=== PATIENT | male | born 1975 | race African-American/Black ===

== ENCOUNTER 2018-10-24 17:21 | Inpatient (IN) | payer BC ==
[2018-10-24] MEDS ORDERED: NORMAL SALINE 1000 ML 1,000 ML IV ONE (18:16)
--- NOTE | 2018-10-24 18:20 | ER Document Report ---
ED Medical Screen (RME) - General Chief Complaint: Breathing Difficulty Stated Complaint: BREATHING PROBLEMS Time Seen by Provider: 10/24/18 18:08 Primary Care Provider: CATHY CORDON [Primary Care Provider] - Follow up as needed Mode of Arrival: Ambulatory Information source: Patient TRAVEL OUTSIDE OF THE [place] IN LAST 30 DAYS: No - HPI Patient complains to provider of: SOB Notes: 10/24/18 18:17 Patient here with complaints of shortness of breath. The patient states that he recently was diagnosed with pneumonia. When back to urgent care yesterday because he was feeling short of breath and was told that he had pneumonia again. He was started on antibiotics. He has an appoint with his primary care doctor tomorrow was feeling more shortness of breath so he came in for evaluation. He denies any chronic medical problems. He takes no daily medications. He denies any recent long trips or surgeries, leg pain or leg swelling, cancer, history of DVT or PE. He is a non-smoker. No chronic lung disease. 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 Exam Patient's mildly tachypneic, appears short of breath when talking. Diminished breath sounds throughout. Heart sounds normal aside from tachycardia. Plan Patient is tachycardic as well as tachypneic and has possible pneumonia. Due to having 2 SIRS criteria with possible infection, I have initiated the sepsis protocol on the patient. No history of renal disease or congestive heart failure, 1 L of normal saline is been ordered. An initial examination was made on the patient as part of the triage process, and it was determined a more comprehensive evaluation was necessary. Initial labs were ordered and patient was transferred to another provider in the ED who assumed care and finished evaluation and plan. - Related Data Allergies/Adverse Reactions: No Known Allergies Allergy (Unverified 10/24/18 18:02) Past Medical History - Social History Chew tobacco use (# tins/day): No Frequency of alcohol use: None Drug Abuse: None Renal/ Medical History: Denies: Hx Peritoneal Dialysis - Immunizations Hx Diphtheria, Pertussis, Tetanus Vaccination: Yes Physical Exam - Vital signs Vitals: Temp Pulse Resp BP Pulse Ox 98.3 F 121 H 22 H 146/88 H 89 L 10/24/18 18:00 10/24/18 18:00 10/24/18 18:00 10/24/18 18:00 10/24/18 18:00 Course - Vital Signs Vital signs: Temp Pulse Resp BP Pulse Ox 98.3 F 121 H 22 H 146/88 H 89 L 10/24/18 18:00 10/24/18 18:00 10/24/18 18:00 10/24/18 18:00 10/24/18 18:00 Doctor's Discharge - Discharge Referrals: LOCALMD,NO [Primary Care Provider] - Follow up as needed
--- NOTE | 2018-10-24 19:11 | RADIOLOGY REPORT (SQ) ---
EXAM DESCRIPTION: CHEST 2 VIEWS COMPLETED DATE/TIME: 10/24/2018 6:22 pm REASON FOR STUDY: SOB COMPARISON: None. EXAM PARAMETERS: NUMBER OF VIEWS: two views TECHNIQUE: Digital Frontal and Lateral radiographic views of the chest acquired. RADIATION DOSE: NA LIMITATIONS: none FINDINGS: LUNGS AND PLEURA: There appears to be mild pulmonary edema. No focal infiltrate. MEDIASTINUM AND HILAR STRUCTURES: No masses or contour abnormalities. HEART AND VASCULAR STRUCTURES: Heart normal size. No evidence for failure. BONES: No acute findings. HARDWARE: None in the chest. OTHER: No other significant finding. IMPRESSION: Mild pulmonary edema, possibly noncardiac pulmonary edema. TECHNICAL DOCUMENTATION: JOB ID: [id number] [employer]- All Rights Reserved Reading location - IP/workstation name: [email or web address]
[2018-10-24 19:14] LABS: VENOUS BLOOD BASE EXCESS 2.8 mmol/L; VENOUS BLOOD HCO3 28.1 mmol/L (20-32); VENOUS BLOOD PCO2 45.7 mmHg (35-63); VENOUS BLOOD PH 7.41 (7.30-7.42)
[2018-10-24 19:15] LABS: ABSOLUTE LYMPHOCYTES (AUTO) 1.8 10^3/uL (0.5-4.7); ABSOLUTE MONOCYTES (AUTO) 0.6 10^3/uL (0.1-1.4); ABSOLUTE NEUT (AUTO) 3.2 10^3/uL (1.7-8.2); BASOPHILS % (AUTO) 0.1 % (0-2); EOSINOPHILS % (AUTO) 0.7 % (0-6); HEMATOCRIT 40.9 % (37.9-51.0); HEMOGLOBIN 13.5 g/dL (13.5-17.0); LYMPHOCYTES % (AUTO) 32.1 % (13-45); MEAN CORPUSCULAR HEMOGLOBIN 27.5 pg (27.0-33.4); MEAN CORPUSCULAR HGB CONC 32.9 g/dL (32.0-36.0); MEAN CORPUSCULAR VOLUME 84 fl (80-97); MONOCYTES % (AUTO) 11.4 % (3-13); PLATELET COUNT 451 10^3/uL (150-450); RED CELL DISTRIBUTION WIDTH 14.4 % (11.5-14.0); SEGMENTED NEUTROPHILS % (AUTO) 55.7 % (42-78); TOTAL CELLS COUNTED % (AUTO) 100 %; WHITE BLOOD COUNT 5.7 10^3/uL (4.0-10.5)
[2018-10-24 19:17] LABS: APPEARANCE,URINE SLIGHTLY-CLOUDY; BILIRUBIN,URINE SMALL (NEGATIVE); CALCIUM OXALATE CRYSTALS,URINE FEW /HPF; COLOR,URINE AMBER; GLUCOSE, URINE NEGATIVE (NEGATIVE); KETONES,URINE NEGATIVE (NEGATIVE); LEUKOCYTE ESTERASE,URINE NEGATIVE (NEGATIVE); NITRITE,URINE NEGATIVE (NEGATIVE); PROTEIN,URINE 30 mg/dL (NEGATIVE)
[2018-10-24 19:21] LABS: INTERNATIONAL RATION (INR) 1.02; PROTHROMBIN TIME 13.9 SEC (11.4-15.4)
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
[2018-10-24 22:49] LABS: ALANINE AMINOTRANSFERASE 20 U/L (21-72); ALBUMIN 3.3 g/dL (3.5-5.0); ALKALINE PHOSPHATASE 92 U/L (38-126); ANION GAP 8 (5-19); ASPARTATE AMINO TRANSFERASE 21 U/L (17-59); BILIRUBIN,DIRECT 0.2 mg/dL (0.0-0.4); BILIRUBIN,TOTAL 0.4 mg/dL (0.2-1.3); BLOOD UREA NITROGEN 10 mg/dL (7-20); CALCIUM 9.1 mg/dL (8.4-10.2); CARBON DIOXIDE 29 mmol/L (22-30); CHLORIDE 101 mmol/L (98-107); GLUCOSE 130 mg/dL (75-110); POTASSIUM 4.3 mmol/L (3.6-5.0); SODIUM 138.2 mmol/L (137-145); TOTAL PROTEIN 6.7 g/dL (6.3-8.2)
[2018-10-24 22:55] LABS: NT PRO BNP 21 pg/mL (<125)
[2018-10-24 22:59] LABS: TROPONIN I < 0.012 ng/mL
--- NOTE | 2018-10-24 23:03 | RADIOLOGY REPORT (SQ) ---
CT CHEST ANGIOGRAPHY WITHOUT THEN WITH IV CONTRAST HISTORY: Shortness of breath. COMPARISON: None. TECHNIQUE: CT angiogram of the chest with IV contrast. 3-D MIP images were obtained in coronal and sagittal reconstructions. This exam was performed according to our departmental dose-optimization program, which includes automated exposure control, adjustment of the mA and/or kV according to patient size and/or use of iterative reconstruction technique. FINDINGS: No filling defects are identified in the pulmonary trunk, main left and right pulmonary arteries, or the segmental branches. The thyroid gland is normal. No gross mediastinal, hilar, or axillary adenopathy. There are diffuse bilateral groundglass opacities throughout all lobes with superimposed areas of centrilobular tree-in-bud nodules. No pneumothorax or pleural effusion. The visualized upper abdomen demonstrates a 3.2 cm hypodense lesion in the left hepatic lobe. The bony thorax is intact. IMPRESSION: 1. No acute pulmonary embolism. 2. Findings consistent with diffuse small airways disease in both lungs, which may be infectious or inflammatory in etiology.
[2018-10-24] MEDS ORDERED: METHYLPREDNISOLONE INJ 125 MG/2 ML SDV IV ONE (23:30)
[2018-10-24] MEDS ORDERED: DOXYCYCLINE HYCLATE 100 MG TABLET PO ONE (23:30)
[2018-10-25] MEDS ORDERED: ONDANSETRON HCL INJ/PF 4 MG/2 ML SDV IV PRN (01:59)
[2018-10-25] MEDS ORDERED: ZOLPIDEM TARTRATE 5 MG TABLET PO PRN (01:59)
[2018-10-25] MEDS ORDERED: MAG HYDROX/AL HYDROX/SIMETH SUSP 30 ML UDCUP PO PRN (01:59)
[2018-10-25] MEDS ORDERED: MAGNESIUM HYDROXIDE SUSP 30 ML UDCUP PO PRN (01:59)
[2018-10-25] MEDS ORDERED: ACETAMINOPHEN 325 MG TABLET PO PRN (02:16)
[2018-10-25 03:12] LABS: FREE T3 3.58 pg/mL (2.77-5.27); FREE T4 (FREE THYROXINE) 1.51 ng/dL (0.78-2.19)
[2018-10-25 03:25] LABS: THYROID STIMULATING HORMONE 1.92 uIU/mL (0.47-4.68)
[2018-10-25] MEDS: METHYLPREDNISOLONE INJ 40 MG/1 ML SDV IV SCH ×4 (06:05→23:36)
[2018-10-25] MEDS: HEPARIN SOD (PORCINE) 5,000 UNIT/ML 1 ML SYRINGE SUBCUT SCH ×3 (06:21→21:53)
[2018-10-25] MEDS: RINGERS SOLUTION,LACTATED 1,000 ML IV PRN ×2 (06:27→12:17)
--- NOTE | 2018-10-25 06:28 | PDOC H&P ---
History of Present Illness Admission Date/PCP: 10/25/18 00:40 No Local PCP Patient complains of: Dyspnea History of Present Illness: VERO RANGEL is a 43 year old male who presented to the emergency room with a 3-month history of dyspnea. Patient admits that he recovered from a pneumonia about 4 months ago and 2 or 3 weeks after his recovery he developed dyspnea. His dyspnea has gradually increased since that time being it first present just with exertion and over the last week the dyspnea has been present to some degree at rest and much worsened with any exertion or activity. On the day of admission his dyspnea became severe and he felt as though he could not breathe. He denies prior similar episodes and has not identified any additional aggravating or ameliorating factors for his dyspnea. In the emergency room he was found to be tachypneic, tachycardic and hypoxic with an O2 sat in the 88-89% range which did not respond rapidly to treatment. He was subsequently admitted to the hospital for further evaluation. He was also noted to have some abnormality on his chest x-ray and CT of the chest which will necessitate a pulmonology consultation. Past Medical History Cardiac Medical History: Denies: Coronary Artery Disease, Hypertension Pulmonary Medical History: Reports: Pneumonia Denies: Asthma, Chronic Obstructive Pulmonary Disease (COPD) EENT Medical History: Denies: Cataracts, Eyes - Prescription lenses, Ears - Hearing aids Neurological Medical History: Denies: Hemorrhagic CVA, Ischemic CVA, Seizures Endocrine Medical History: Denies: Diabetes Mellitus Type 1, Diabetes Mellitus Type 2, Hyperthyroidism, Hypothyroidism, Obesity Renal/ Medical History: Denies: Chronic Kidney Disease, Nephrolithiasis Malignancy Medical History: Reports: None GI Medical History: Denies: Cirrhosis, Crohn's Disease, Hepatitis, Ulcerative Colitis Musculoskeltal Medical History: Denies: Arthritis, Gout Skin Medical History: Denies: Eczema, Other Psychiatric Medical History: Denies: Alcohol Dependency, Substance Abuse, Tobacco Dependency Traumatic Medical History: Reports: None Hematology: Denies: Anemia, Bleeding Tendencies Infectious Medical History: Reports: None Past Surgical History Past Surgical History: Reports: None Social History Information Source: Patient Lives with: Parents Smoking Status: Never Smoker Frequency of Alcohol Use: Rare Hx Recreational Drug Use: No Drugs: None Hx Prescription Drug Abuse: No - Advance Directive Resuscitation Status: Full Code Surrogate healthcare decision maker:: Reba Walsh Family History Family History: Hypertension. denies: CAD, DM, Malignancy Parental Family History Reviewed: Yes Children Family History Reviewed: No Sibling(s) Family History Reviewed.: Yes Medication/Allergy Allergies/Adverse Reactions: No Known Allergies Allergy (Unverified 10/24/18 18:02) Review of Systems Constitutional: ABSENT: chills, fever(s) Eyes: ABSENT: visual disturbances, other - Ocular pain Ears: ABSENT: hearing changes, other - Ear pain Nose, Mouth, and Throat: ABSENT: mouth pain, sore throat Cardiovascular: PRESENT: dyspnea on exertion. ABSENT: chest pain, edema, orthropnea, palpitations Respiratory: PRESENT: dyspnea. ABSENT: cough Gastrointestinal: ABSENT: abdominal pain, constipation, diarrhea, hematochezia, nausea, vomiting Genitourinary: ABSENT: dysuria, hematuria Integumentary: ABSENT: pruritus, rash Neurological: ABSENT: confusion, convulsions, focal weakness, memory loss, syncope Psychiatric: ABSENT: anxiety, depression Endocrine: ABSENT: cold intolerance, heat intolerance Hematologic/Lymphatic: ABSENT: easy bleeding, easy bruising Physical Exam Vital Signs: Temp Pulse Resp BP Pulse Ox 98.4 F 121 H 23 H 130/73 H 98 10/24/18 20:47 10/24/18 18:00 10/24/18 21:00 10/24/18 22:42 10/24/18 22:42 Intake & Output 10/23/18 10/24/18 10/25/18 23:59 23:59 23:59 Intake Total 1000 Balance 1000 Weight 63.1 kg General appearance: PRESENT: no acute distress, cooperative, thin Head exam: PRESENT: atraumatic, normocephalic Eye exam: ABSENT: conjunctival injection, scleral icterus Ear exam: PRESENT: normal external ear exam. ABSENT: bleeding, drainage Mouth exam: PRESENT: dry mucosa, neck supple Neck exam: ABSENT: JVD, thyromegaly, tracheal deviation Respiratory exam: PRESENT: decreased breath sounds - Slightly decreased breath sounds throughout all areas of the chest, prolonged expiratory phas - Mildly prolonged expiratory phase in all mejia with moderately decreased air movement at the time of my evaluation, symmetrical, tachypnea. ABSENT: accessory muscle use, rales, retraction, rhonchi, wheezes Cardiovascular exam: PRESENT: RRR, tachycardia. ABSENT: clicks, gallop, rubs Pulses: PRESENT: normal radial pulses, normal dorsalis pedis pul Vascular exam: PRESENT: normal capillary refill. ABSENT: pallor GI/Abdominal exam: PRESENT: normal bowel sounds, soft Rectal exam: PRESENT: deferred Extremities exam: ABSENT: joint swelling, pedal edema Musculoskeletal exam: PRESENT: full ROM, normal inspection Neurological exam: PRESENT: alert, oriented to person, oriented to place, oriented to time, oriented to situation, CN II-XII grossly intact. ABSENT: motor sensory deficit Psychiatric exam: PRESENT: appropriate affect, normal mood Skin exam: PRESENT: dry, intact, warm. ABSENT: jaundice, rash, urticaria Results Laboratory Results: 10/24/18 18:46 10/24/18 22:17 10/24/18 10/24/18 10/24/18 17:46 17:46 18:46 WBC 5.7 RBC 4.90 Hgb 13.5 Hct 40.9 MCV 84 MCH 27.5 MCHC 32.9 RDW 14.4 H Plt Count 451 H Seg Neutrophils % 55.7 Lymphocytes % 32.1 Monocytes % 11.4 Eosinophils % 0.7 Basophils % 0.1 Absolute Neutrophils 3.2 Absolute Lymphocytes 1.8 Absolute Monocytes 0.6 Absolute Eosinophils 0.0 Absolute Basophils 0.0 VBG pH 7.41 VBG pCO2 45.7 VBG HCO3 28.1 VBG Base Excess 2.8 Sodium Potassium Chloride Carbon Dioxide Anion Gap BUN Creatinine Est GFR ( Amer) Est GFR (Non-Af Amer) Glucose Lactic Acid 1.0 Calcium Total Bilirubin AST ALT Alkaline Phosphatase Total Protein Albumin Urine Color Urine Appearance Urine pH Ur Specific [place] Urine Protein Urine Glucose (UA) Urine Ketones Urine Blood Urine Nitrite Ur Leukocyte Esterase Urine RBC (Auto) 10/24/18 10/24/18 10/24/18 18:46 18:53 22:17 WBC RBC Hgb Hct MCV MCH MCHC RDW Plt Count Seg Neutrophils % Lymphocytes % Monocytes % Eosinophils % Basophils % Absolute Neutrophils Absolute Lymphocytes Absolute Monocytes Absolute Eosinophils Absolute Basophils VBG pH VBG pCO2 VBG HCO3 VBG Base Excess Sodium Cancelled 138.2 Potassium Cancelled 4.3 Chloride Cancelled 101 Carbon Dioxide Cancelled 29 Anion Gap Cancelled 8 BUN Cancelled 10 Creatinine Cancelled 0.66 Est GFR ( Amer) Cancelled > 60 Est GFR (Non-Af Amer) Cancelled > 60 Glucose Cancelled 130 H Lactic Acid Calcium Cancelled 9.1 Total Bilirubin Cancelled 0.4 AST Cancelled 21 ALT Cancelled 20 L Alkaline Phosphatase Cancelled 92 Total Protein Cancelled 6.7 Albumin Cancelled 3.3 L Urine Color CHARLENE Urine Appearance SLIGHTLY-CLOUDY Urine pH 5.0 Ur Specific [place] 1.030 Urine Protein 30 H Urine Glucose (UA) NEGATIVE Urine Ketones NEGATIVE Urine Blood SMALL H Urine Nitrite NEGATIVE Ur Leukocyte Esterase NEGATIVE Urine RBC (Auto) 13 10/24/18 22:17 Troponin I < 0.012 NT-Pro-B Natriuret Pep 21 Impressions: Chest X-Ray 10/24/18 00:00 IMPRESSION: Mild pulmonary edema, possibly noncardiac pulmonary edema. Chest/Abdomen CTA 10/24/18 21:01 IMPRESSION: 1. No acute pulmonary embolism. 2. Findings consistent with diffuse small airways disease in both lungs, which may be infectious or inflammatory in etiology. Assessment and Plan - Diagnosis (1) Acute respiratory failure with hypoxia Is this a current diagnosis for this admission?: Yes Plan: Patient be treated with supplemental oxygen to maintain an O2 sat greater than 93%. His O2 sat will be monitored on a regular basis. A consultation will be obtained with pulmonology. (2) Abnormality of lung on chest x-ray Is this a current diagnosis for this admission?: Yes Plan: Patient was given empiric dose of doxycycline in the emergency room. A pulm onology consultation will be obtained to guide further therapy. Antibiotics will be held until after the patient is seen today in order to not interfere with possible diagnostic studies that may need to be needed on an urgent basis. Empiric therapy will be started by the daytime hospitalist or the validation manager seeing the patient in consultation if they are deemed appropriate. (3) Dyspnea Qualifiers: Dyspnea type: shortness of breath Qualified Code(s): R06.02 - Shortness of breath; R06.00 - Dyspnea, unspecified; R06.01 - Orthopnea Is this a current diagnosis for this admission?: Yes Plan: Patient is being treated with Solu-Medrol 40 mg IV every 6 hours. His res piratory status to be monitored closely on a clinical and vital signs basis. (4) Hyperglycemia, unspecified Is this a current diagnosis for this admission?: Yes Plan: Patient was noted to have a modest hyperglycemia. Hemoglobin A1c will be obtained to evaluate. - Time Time Spent with patient: 25-34 minutes Medications reviewed and adjusted accordingly: No - no meds Anticipated discharge: Home - Inpatient Certification Based on my medical assessment, after consideration of the patient's comorbidities, presenting symptoms, or acuity I expect that the services needed warrant INPATIENT care.: Yes I certify that my determination is in accordance with my understanding of Medicare's requirements for reasonable and necessary INPATIENT services [42 CFR 412.3e].: Yes Medical Necessity: Failure to Improve With Outpatient Therapy, Need Close Monitoring Due to Risk of Patient Decompensation, Need for Nebulizer Therapy and Monitoring of Response, Risk of Complication if Not Cared For in Hospital, Risk of Diagnosis Which Will Require Inpatient Eval/Care/Monitoring
[2018-10-25 06:40] LABS: CHOLESTEROL 104.82 mg/dL (0-200); TRIGLYCERIDES 60 mg/dL (<150)
[2018-10-25 06:51] LABS: DIRECT LDL 66 mg/dL (<100)
[2018-10-25] MEDS: BUDESONIDE NEB 0.5 MG/2 ML AMPUL NEB SCH ×2 (09:20→20:47)
[2018-10-25] MEDS: ACETYLCYSTEINE 20% SOLN 800 MG/4 ML VIAL.NEB NEB SCH ×2 (09:20→20:47)
[2018-10-25] MEDS: LEVALBUTEROL HCL NEB 0.63 MG/3 ML AMPUL NEB PRN ×2 (09:20→20:47)
[2018-10-25] MEDS: FAMOTIDINE 20 MG TABLET PO SCH ×2 (09:25→21:49)
[2018-10-25] MEDS: DOCUSATE SODIUM 100 MG CAPSULE PO SCH ×2 (09:25→17:57)
[2018-10-25] MEDS ORDERED: TUBERCULIN,PURIF.PROT.DERIV. 5 TU/0.1 ML TEST 1 ML VIAL ID ONE (13:30)
--- NOTE | 2018-10-25 18:14 | Progress Note ---
Provider Note Provider Note: VERO RANGEL is a 43-year-old male with a past medical history of recent pneumonia (approximately 4 months ago), who recovered briefly after his admission but then developed worsening dyspnea approximately 2 to 3 weeks thereafter that has gradually worsened until he presented to the emergency department last night. The patient was admitted early this morning by the RECEPTION INTERVIEWER for acute respiratory failure with hypoxia and abnormal CTA chest and chest x-ray findings. Overnight events, imaging results, laboratory findings, and vital signs were reviewed. Urine cultures are negative at 1 day. Blood cultures pending. Sputum culture pending. Patient did receive a one-time dose of doxycycline while in the emergency department; further antibiotic treatment has been held as the patient does not have a clear infectious process (WBCs 5.7, afebrile, nml HR, imaging negative for PNA though with abnml findings.) Agree with the plan of care as established by the previous provider. Pulmonology has been consulted; appreciate Dr. Batista's assistance.
[2018-10-26] MEDS: HEPARIN SOD (PORCINE) 5,000 UNIT/ML 1 ML SYRINGE SUBCUT SCH ×3 (05:46→21:25)
[2018-10-26] MEDS: METHYLPREDNISOLONE INJ 40 MG/1 ML SDV IV SCH ×3 (05:46→21:24)
[2018-10-26 06:28] LABS: HEMATOCRIT 39.1 % (37.9-51.0); MEAN CORPUSCULAR HEMOGLOBIN 27.4 pg (27.0-33.4); MEAN CORPUSCULAR HGB CONC 33.2 g/dL (32.0-36.0); MEAN CORPUSCULAR VOLUME 83 fl (80-97); PLATELET COUNT 368 10^3/uL (150-450); RED BLOOD COUNT 4.72 10^6/uL (4.35-5.55); RED CELL DISTRIBUTION WIDTH 14.3 % (11.5-14.0); WHITE BLOOD COUNT 7.5 10^3/uL (4.0-10.5)
[2018-10-26 06:52] LABS: ANION GAP 10 (5-19); BLOOD UREA NITROGEN 11 mg/dL (7-20); CALCIUM 9.7 mg/dL (8.4-10.2); CARBON DIOXIDE 29 mmol/L (22-30); CHLORIDE 105 mmol/L (98-107); GLUCOSE 127 mg/dL (75-110); POTASSIUM 4.8 mmol/L (3.6-5.0); SODIUM 143.5 mmol/L (137-145)
[2018-10-26] MEDS: ACETYLCYSTEINE 20% SOLN 800 MG/4 ML VIAL.NEB NEB SCH (09:32)
[2018-10-26] MEDS: LEVALBUTEROL HCL NEB 0.63 MG/3 ML AMPUL NEB PRN (09:33)
[2018-10-26] MEDS: BUDESONIDE NEB 0.5 MG/2 ML AMPUL NEB SCH (09:33)
[2018-10-26] MEDS: DOCUSATE SODIUM 100 MG CAPSULE PO SCH ×2 (09:59→18:10)
[2018-10-26] MEDS: FAMOTIDINE 20 MG TABLET PO SCH ×2 (09:59→21:24)
--- NOTE | 2018-10-26 11:23 | EKG REPORT ---
SEVERITY:- ABNORMAL ECG - SINUS TACHYCARDIA VENTRICULAR PREMATURE COMPLEX PROBABLE RIGHT VENTRICULAR HYPERTROPHY : Confirmed by: Criss Jenkins 26-Oct-2018 11:23:06
--- NOTE | 2018-10-26 16:28 | PDOC CONSULTATION ---
Consultation Consult Date: 10/25/18 Attending physician:: CARMEN BOSCH Provider Consulted: PAULINO BATISTA Consult reason:: Abnormal chest x-ray hypoxia History of Present Illness Admission Date/PCP: 10/25/18 00:40 History of Present Illness: VERO RANGEL is a 43 year old male with shortness of breath. Patient states he cannot catch a breath even while sitting still he states he is not coughing anything up at this time. He is not comfortable lying flat he does use 4 pillows at night and likes to sit up while he sleeping. 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 Consulted for hypoxia and abnormal chest x-ray, chest CT shows no acute pulmonary embolism and findings are consistent with diffuse small airways disease in both lungs which may be infectious or inflammatory in etiology. No chronic lung disease as a child, no pets and no recent travel, exposure to passive smoke as child but not as an adult and does not smoke himself. If neccessary could do a fiberoptic bronchoscope Past Medical History Cardiac Medical History: Denies: Coronary Artery Disease, Hypertension Pulmonary Medical History: Reports: Pneumonia Denies: Asthma, Chronic Obstructive Pulmonary Disease (COPD) EENT Medical History: Denies: Cataracts, Eyes - Prescription lenses, Ears - Hearing aids Neurological Medical History: Denies: Hemorrhagic CVA, Ischemic CVA, Seizures Endocrine Medical History: Denies: Diabetes Mellitus Type 1, Diabetes Mellitus Type 2, Hyperthyroidism, Hypothyroidism, Obesity Renal/ Medical History: Denies: Chronic Kidney Disease, Nephrolithiasis Malignancy Medical History: Reports: None GI Medical History: Denies: Cirrhosis, Crohn's Disease, Hepatitis, Ulcerative Colitis Musculoskeltal Medical History: Denies: Arthritis, Gout Skin Medical History: Denies: Eczema, Other Psychiatric Medical History: Denies: Alcohol Dependency, Substance Abuse, Tobacco Dependency Traumatic Medical History: Reports: None Hematology: Denies: Anemia, Bleeding Tendencies Infectious Medical History: Reports: None Past Surgical History Past Surgical History: Reports: None Social History Lives with: Parents Smoking Status: Never Smoker Frequency of Alcohol Use: Rare Hx Recreational Drug Use: No Drugs: None Hx Prescription Drug Abuse: No - Advance Directive Resuscitation Status: Full Code Family History Family History: Hypertension. denies: CAD, DM, Malignancy Parental Family History Reviewed: Yes Children Family History Reviewed: Unknown Sibling(s) Family History Reviewed.: Yes Medication/Allergy Home Medications: Fexofenadine HCl [Maile] 180 mg PO DAILY 10/25/18 Allergies/Adverse Reactions: No Known Allergies Allergy (Unverified 10/25/18 09:34) Review of Systems Constitutional: ABSENT: chills, fatigue, fever(s) Eyes: ABSENT: visual disturbances Ears: ABSENT: hearing changes Nose, Mouth, and Throat: ABSENT: mouth pain, sore throat Cardiovascular: PRESENT: dyspnea on exertion. ABSENT: edema, palpitations Respiratory: PRESENT: cough, dyspnea, sputum Gastrointestinal: ABSENT: coffee ground emesis, diarrhea Genitourinary: ABSENT: dysuria, hematuria Musculoskeletal: ABSENT: deformity, joint swelling Integumentary: ABSENT: diaphoresis, erythema Neurological: ABSENT: abnormal gait, abnormal movements Psychiatric: ABSENT: anxiety, depression, homidical ideation, suicidal ideation Endocrine: ABSENT: cold intolerance, heat intolerance, polydipsia, polyuria Hematologic/Lymphatic: ABSENT: easy bleeding, easy bruising Physical Exam Vital Signs: Temp Pulse Resp BP Pulse Ox 98 F 94 16 121/67 99 10/26/18 12:54 10/26/18 12:54 10/26/18 12:54 10/26/18 12:54 10/26/18 12:54 Intake & Output 10/25/18 10/26/18 10/27/18 06:59 06:59 06:59 Intake Total 1000 1774 100 Balance 1000 1774 100 Weight 63.9 kg 64 kg General appearance: PRESENT: no acute distress, well-developed, well-nourished Head exam: PRESENT: atraumatic, normocephalic Eye exam: PRESENT: conjunctiva pink, EOMI, PERRLA. ABSENT: scleral icterus Ear exam: PRESENT: normal external ear exam Mouth exam: PRESENT: moist, tongue midline Neck exam: ABSENT: carotid bruit, JVD, lymphadenopathy, thyromegaly Respiratory exam: PRESENT: decreased breath sounds, rhonchi. ABSENT: rales, wheezes Cardiovascular exam: PRESENT: RRR. ABSENT: diastolic murmur, rubs, systolic murmur Pulses: PRESENT: normal dorsalis pedis pul Vascular exam: PRESENT: normal capillary refill GI/Abdominal exam: PRESENT: normal bowel sounds, soft. ABSENT: distended, guarding, mass, organolmegaly, rebound, tenderness Rectal exam: PRESENT: deferred Extremities exam: PRESENT: full ROM. ABSENT: calf tenderness, clubbing, pedal edema Neurological exam: PRESENT: alert, awake, oriented to person, oriented to place, oriented to time, oriented to situation, CN II-XII grossly intact. ABSENT: motor sensory deficit Psychiatric exam: PRESENT: appropriate affect, normal mood. ABSENT: homicidal ideation, suicidal ideation Skin exam: PRESENT: dry, intact, warm. ABSENT: cyanosis, rash Results Laboratory Results: 10/26/18 05:40 10/26/18 05:40 10/26/18 10/26/18 05:40 05:40 WBC 7.5 RBC 4.72 Hgb 13.0 L Hct 39.1 MCV 83 MCH 27.4 MCHC 33.2 RDW 14.3 H Plt Count 368 Sodium 143.5 Potassium 4.8 Chloride 105 Carbon Dioxide 29 Anion Gap 10 BUN 11 Creatinine 0.52 Est GFR ( Amer) > 60 Est GFR (Non-Af Amer) > 60 Glucose 127 H Calcium 9.7 Magnesium 2.1 10/24/18 18:53 Clean Catch Midstream Urine Culture - Final NO GROWTH 2 DAYS 10/24/18 22:17 Troponin I < 0.012 NT-Pro-B Natriuret Pep 21 Impressions: Chest X-Ray 10/24/18 00:00 IMPRESSION: Mild pulmonary edema, possibly noncardiac pulmonary edema. Chest/Abdomen CTA 10/24/18 21:01 IMPRESSION: 1. No acute pulmonary embolism. 2. Findings consistent with diffuse small airways disease in both lungs, which may be infectious or inflammatory in etiology. Assessment & Plan - Diagnosis (1) Abnormality of lung on chest x-ray Is this a current diagnosis for this admission?: Yes Plan: connective tissue disease work up as it appears to be more inflammatory than infectious, also will look for atypicals such as legionella, HIV, and TB (2) Acute respiratory failure with hypoxia Is this a current diagnosis for this admission?: Yes Plan: Continue supplemental oxygen Inpatient Scribe Statement - . Entered by Suma Barr , acting as scribe for Dr. Batista .
--- NOTE | 2018-10-26 16:55 | PDOC PROGRESS REPORT ---
Subjective Progress Note for:: 10/26/18 Subjective:: VERO RANGEL is a 43 year old male with a past medical history of recent pneumonia (3 months ago) with persistent dyspnea who was admitted for acute respiratory failure with hypoxia. The patient was seen on afternoon rounds. He reports that he is feeling significantly better; fact he was found resting comfortably on room air. He is quite tearful as he had noted that some of the laboratory slips this morning for blood draw were for HIV confirmation. He does confirm prior at risk behaviors, "I am a black, clifford, male," but reports that he is only had one lifestyle partner. He denies other high-risk behaviors. He further denies cardinal symptoms; no recent weight loss, rashes/skin changes, and only infection with his recent pneumonia. He is understandably tearful; encouragement was provided and I offered to return to speak with him and his family together if he chose to do so. He denies current fever, chills, chest pain, palpitations, dyspnea, orthopnea, abdominal pain, nausea vomiting and diarrhea. He would like to research the infectious disease offices in [place] and will let me know tomorrow of his choice (will verify in network coverage with insurance) so that follow-up arrangements can be made. The patient is reminded that confirmation testing is a send out lab and that we will not have those results back for another day or 2. Otherwise, he has no new questions or concerns at this time. No concerns per nursing. Reason For Visit: ACUTE RESPIRATOY FAILURE WITH HYPOXIA Physical Exam Vital Signs: Temp Pulse Resp BP Pulse Ox 97.7 F 100 16 135/78 H 95 10/26/18 15:12 10/26/18 15:12 10/26/18 15:12 10/26/18 15:12 10/26/18 15:12 Intake & Output 10/25/18 10/26/18 10/27/18 06:59 06:59 06:59 Intake Total 1000 1774 100 Balance 1000 1774 100 Weight 63.9 kg 64 kg General appearance: PRESENT: no acute distress, cooperative - Pleasant, thin, well-developed, well-nourished Head exam: PRESENT: atraumatic, normocephalic Eye exam: PRESENT: conjunctiva pink, EOMI, PERRLA. ABSENT: scleral icterus Ear exam: PRESENT: normal external ear exam Mouth exam: PRESENT: moist, tongue midline Neck exam: ABSENT: carotid bruit, JVD, lymphadenopathy, thyromegaly Respiratory exam: PRESENT: clear to auscultation juan pablo, symmetrical, unlabored. ABSENT: rales, rhonchi, wheezes Cardiovascular exam: PRESENT: RRR. ABSENT: diastolic murmur, rubs, systolic murmur Pulses: PRESENT: normal dorsalis pedis pul Vascular exam: PRESENT: normal capillary refill GI/Abdominal exam: PRESENT: normal bowel sounds, soft. ABSENT: distended, guarding, mass, organolmegaly, rebound, tenderness Rectal exam: PRESENT: deferred Extremities exam: PRESENT: full ROM. ABSENT: calf tenderness, clubbing, pedal edema Neurological exam: PRESENT: alert, awake, oriented to person, oriented to place, oriented to time, oriented to situation, CN II-XII grossly intact. ABSENT: motor sensory deficit Psychiatric exam: PRESENT: appropriate affect, normal mood - Tearful. ABSENT: homicidal ideation, suicidal ideation Skin exam: PRESENT: dry, intact, warm. ABSENT: cyanosis, rash Results Laboratory Results: 10/26/18 05:40 10/26/18 05:40 10/26/18 10/26/18 05:40 05:40 WBC 7.5 RBC 4.72 Hgb 13.0 L Hct 39.1 MCV 83 MCH 27.4 MCHC 33.2 RDW 14.3 H Plt Count 368 Sodium 143.5 Potassium 4.8 Chloride 105 Carbon Dioxide 29 Anion Gap 10 BUN 11 Creatinine 0.52 Est GFR ( Amer) > 60 Est GFR (Non-Af Amer) > 60 Glucose 127 H Calcium 9.7 Magnesium 2.1 10/24/18 18:53 Clean Catch Midstream Urine Culture - Final NO GROWTH 2 DAYS 10/24/18 22:17 Troponin I < 0.012 NT-Pro-B Natriuret Pep 21 Impressions: Chest X-Ray 10/24/18 00:00 IMPRESSION: Mild pulmonary edema, possibly noncardiac pulmonary edema. Chest/Abdomen CTA 10/24/18 21:01 IMPRESSION: 1. No acute pulmonary embolism. 2. Findings consistent with diffuse small airways disease in both lungs, which may be infectious or inflammatory in etiology. Assessment and Plan - Diagnosis (1) Acute respiratory failure with hypoxia Is this a current diagnosis for this admission?: Yes Plan: Patient is admitted to the medical floor. He is provided supplemental oxygen as needed to maintain saturations; currently maintaining on room air. Placed on IV Solu-Medrol; have begun weaning today. Continue as needed nebulizer treatments. Pulmonology has been consulted; several send out labs are pending to work-up connective tissue disease. PPD has been placed; to be read tomorrow. Blood cultures are negative at 24 hours. Sputum culture is polymicrobial and pending. He did receive a one-time dose of doxycycline while in the emergency department; further antibiotic therapy has been held as there is no clear evidence of pneumonia at this time. (2) Abnormal CT scan, lung Is this a current diagnosis for this admission?: Yes Plan: CTA of the chest demonstrated findings consistent with diffuse small airway disease in both lungs; infectious or inflammatory in etiology. No PE. Pulmonology is consulted; further work-up per their expertise. (3) Dyspnea Qualifiers: Dyspnea type: shortness of breath Qualified Code(s): R06.02 - Shortness of breath; R06.00 - Dyspnea, unspecified; R06.01 - Orthopnea Is this a current diagnosis for this admission?: Yes Plan: Evaluation and management as a #1. (4) HIV antibody positive Is this a current diagnosis for this admission?: Yes Plan: HIV 1 and 2 antibody is reactive; confirmation testing is pending (send out). CD4 and CD8 counts and HIV viral load are ordered for a.m. labs. Will discuss with patient choice of infectious disease/HIV clinic for follow-up. - Time Time Spent with patient: 35 or more minutes Medications reviewed and adjusted accordingly: Yes Anticipated discharge: Home Within: within 48 hours
[2018-10-26 17:36] LABS: ANTIMYELOPEROXIDASE (MPO) AB <9.0 U/mL (0.0-9.0); CYTOPLASMIC (C-ANCA) <1:20 titer (Neg:<1:20)
[2018-10-27] MEDS: METHYLPREDNISOLONE INJ 40 MG/1 ML SDV IV SCH ×2 (05:45→13:57)
[2018-10-27] MEDS: HEPARIN SOD (PORCINE) 5,000 UNIT/ML 1 ML SYRINGE SUBCUT SCH ×2 (05:50→13:57)
[2018-10-27 06:59] LABS: HEMATOCRIT 40.9 % (37.9-51.0); HEMOGLOBIN 13.3 g/dL (13.5-17.0); MEAN CORPUSCULAR HGB CONC 32.4 g/dL (32.0-36.0); MEAN CORPUSCULAR VOLUME 83 fl (80-97); PLATELET COUNT 477 10^3/uL (150-450); RED BLOOD COUNT 4.92 10^6/uL (4.35-5.55); RED CELL DISTRIBUTION WIDTH 14.5 % (11.5-14.0); WHITE BLOOD COUNT 14.2 10^3/uL (4.0-10.5)
[2018-10-27 07:06] LABS: ANTINUCLEAR ANTIBODIES Negative (Negative); ATYPICAL PANCA <1:20 titer (Neg:<1:20); PERINUCLEAR (P-ANCA) <1:20 titer (Neg:<1:20)
[2018-10-27 07:14] LABS: ANION GAP 12 (5-19); BLOOD UREA NITROGEN 13 mg/dL (7-20); CALCIUM 10.2 mg/dL (8.4-10.2); CARBON DIOXIDE 29 mmol/L (22-30); CHLORIDE 100 mmol/L (98-107); GLUCOSE 87 mg/dL (75-110); POTASSIUM 4.4 mmol/L (3.6-5.0)
[2018-10-27] MEDS ORDERED: LORATADINE 10 MG TABLET PO SCH (10:00)
[2018-10-27] MEDS ORDERED: SULFAMETHOXAZOLE/TRIMETHOPRIM 800-160 MG TABLET PO SCH (12:00)
[2018-10-27] MEDS: FAMOTIDINE 20 MG TABLET PO SCH (12:32)
[2018-10-27] MEDS: DOCUSATE SODIUM 100 MG CAPSULE PO SCH (12:32)
[2018-10-27 12:56] VITALS: BP 118/76
[2018-10-28 12:37] LABS: ABSOLUTE CD 4 HELPER 100 /uL (359-1519); ABSOLUTE CD 8 SUPPRESSOR 1950 /uL (109-897); CD BASOPHILS 0 % (Not Estab.); CD EOSINOPHILS 4 % (Not Estab.); CD MONOCYTES 5 % (Not Estab.); CD NEUTROPHILS 74 % (Not Estab.); CD4/CD8 RATIO 0.05 (0.92-3.72); EOSINOPHILS (ABSOLUTE) 0.5 x10E3/uL (0.0-0.4); HEMOGLOBIN 13.7 g/dL (13.0-17.7); IMMATURE GRANULOCYTES 0 % (Not Estab.); LYMPHS(ABSOLUTE) 2.5 x10E3/uL (0.7-3.1); MCH 28.1 pg (26.6-33.0); MCHC 32.6 g/dL (31.5-35.7); MCV 86 fL (79-97); MONOCYTES(ABSOLUTE) 0.8 x10E3/uL (0.1-0.9); NEUTROPHILS(ABSOLUTE) 10.8 x10E3/uL (1.4-7.0); RBC 4.87 x10E6/uL (4.14-5.80); RDW 14.5 % (12.3-15.4); WBC 14.5 x10E3/uL (3.4-10.8)
[2018-10-28 12:54] LABS: PLATELETS 538 x10E3/uL (150-450)
[2018-10-30 11:10] LABS: HIV-1 RNA LOG10.. 4.754 (.); HIV-1 RNA PCR QUANT 56700 copies/mL (.)
--- NOTE | 2018-10-30 17:02 | PDOC DISCHARGE SUMMARY ---
General - Admit/Disc Date/PCP Admission Date/Primary Care Provider: 10/25/18 00:40 Discharge Date: 10/27/18 - Discharge Diagnosis (1) Acute respiratory failure with hypoxia Is this a current diagnosis for this admission?: Yes Summary: Resolved; patient is now maintaining oxygen saturations while ambulatory on room air. Multifactorial secondary to diffuse small airway disease to both lungs (infectious versus inflammatory process) and confirmed Haemophilus influenzae infection. Patient was admitted to the medical floor and supported with supplemental oxygen as needed to maintain saturations greater than 90%. He was placed on IV Solu-Medrol which was slowly weaned as his symptoms improved. Pulmonology was consulted; several send out labs are pending for work-up of con nective tissue disease. Spoke with Dr. Batista on day of discharge; recommends a long prednisone taper. Blood cultures were negative at 5 days, sputum culture did reveal Haemophilus influenzea following patient discharge to home. The patient was contacted and advised that a prescription for Amoxicillin had been transmitted to his pharmacy. (2) Abnormal CT scan, lung Is this a current diagnosis for this admission?: Yes Summary: CTA of the chest demonstrated findings consistent with diffuse small airway disease in both lungs; infectious or inflammatory in etiology. No PE. Possibly related to H. influenzea infection in presence of of HIV infection. Pulmonology was consulted; multiple send out labs remain pending at time of dictation. Recommend long steroid taper. Patient to follow up in 6-8 weeks. (3) Dyspnea Is this a current diagnosis for this admission?: Yes Summary: Resolved; secondary to #1 and #2. Evaluation and management as above. (4) AIDS (acquired immunodeficiency syndrome), CD4 <=200 Is this a current diagnosis for this admission?: Yes Summary: New diagnosis. HIV 1 and 2 antibody is reactive; confirmation testing revealed positive HIV-1 antibody, negative HIV-2. HIV-1 RNA Qnt 51942; log10 4.754 HIV Genotype pending at time of dictation. Absolute CD4 100, absolute CD8 1950, T-lymph CD4/8 ratio 0.05. Discussed with patient choice of infectious disease/HIV clinic for follow-up; requested referral to [facility] in [place]. Patient's records were faxed and follow-up call to Dr. Hinkle's nurse, Valeria, was placed to confirm receipt of records. He is being scheduled an appointment for the week of November. PPD was placed; unfortunately, I can not find documentation that it was read prior to discharge. On day of discharge, patient was in stable condition, asymptomatic, afebrile, and maintaining oxygen saturations while ambulatory on room air. Patient was discharged on Bactrim DS 1 tab daily for prophylaxis and Amoxicillin 500 mg TID x 10 days for treatment of H. influenzea. He requested that HIV information not be provided in his discharge packet; he was advised of high quality website that could be accessed for information ([facility], [facility], [facility], [facility]). Follow up phone call placed 2 days after discharge; patient was informed that confirmation testing was positive. It was not revealed that his CD4 count was 100 (I did not feel this would be appropriate over the phone, patient confirmed that he had an appointment with [facility] scheduled, and I have no concern regarding compliance). However, he was reminded of the importance of continuing his antibiotics and was strongly encouraged to avoid sick contacts until seen by Dr. Hinkle. Patient expressed understanding and reported he had been compliant with abx recommendations. Will follow up next week (11/11/18) to ensure he kept his new-patient appointment. (5) HIV antibody positive Is this a current diagnosis for this admission?: Yes Summary: New diagnosis. Evaluation and management as above. - Additional Information Resuscitation Status: Full Code Discharge Diet: Regular Discharge Activity: Activity As Tolerated Prescriptions: Albuterol Sulfate [Albuterol Sulfate Hfa] 8.5 gm IH Q4HP PRN #1 hfa.[email or web address] PRN Reason: Amoxicillin 1 tab PO TID #30 tab Prednisone 10 mg PO ASDIR PRN #1 tab.ds.pk PRN Reason: Sulfamethoxazole/Trimethoprim [Septra-Ds 800-160 mg Tablet] 1 tab PO DAILY #30 tablet Home Medications: Fexofenadine HCl [Maile] 180 mg PO DAILY 10/25/18 Acetaminophen [Tylenol 325 mg Tablet] 650 mg PO Q4HP PRN tablet 10/27/18 Albuterol Sulfate [Albuterol Sulfate Hfa] 8.5 gm IH Q4HP PRN #1 hfa.aer.ad 10/27/18 Amoxicillin 1 tab PO TID #30 tab 10/27/18 Prednisone 10 mg PO ASDIR PRN #1 tab.ds.pk 10/27/18 Sulfamethoxazole/Trimethoprim [Septra-Ds 800-160 mg Tablet] 1 tab PO DAILY #30 tablet 10/27/18 History of Present Illness History of Present Illness: Per H&P by Dr. Thomas: VERO RANGEL is a 43 year old male who presented to the emergency room with a 3-month history of dyspnea. Patient admits that he recovered from a pneumonia about 4 months ago and 2 or 3 weeks after his recovery he developed dyspnea. His dyspnea has gradually increased since that time being it first present just with exertion and over the last week the dyspnea has been present to some degree at rest and much worsened with any exertion or activity. On the day of admission his dyspnea became severe and he felt as though he could not breathe. He denies prior similar episodes and has not identified any additional aggravating or ameliorating factors for his dyspnea. In the emergency room he was found to be tachypneic, tachycardic and hypoxic with an O2 sat in the 88-89% range which did not respond rapidly to treatment. He was subsequently admitted to the hospital for further evaluation. He was also noted to have some abnormality on his chest x-ray and CT of the chest which will necessitate a pulmonology consultation. Physical Exam Vital Signs: Temp Pulse Resp BP Pulse Ox 98.0 F 74 24 H 118/76 96 10/27/18 12:34 10/27/18 12:34 10/27/18 12:34 10/27/18 12:34 10/27/18 12:34 Intake & Output 10/26/18 10/27/18 10/28/18 06:59 06:59 06:59 Intake Total 1774 450 Balance 1774 450 Weight 64 kg 64.4 kg General appearance: PRESENT: no acute distress, cooperative - pleasant, thin, well-developed, well-nourished Head exam: PRESENT: atraumatic, normocephalic Eye exam: PRESENT: conjunctiva pink, EOMI, PERRLA. ABSENT: scleral icterus Ear exam: PRESENT: normal external ear exam Mouth exam: PRESENT: moist, tongue midline Neck exam: ABSENT: carotid bruit, JVD, lymphadenopathy, thyromegaly Respiratory exam: PRESENT: clear to auscultation juan pablo, symmetrical, unlabored. ABSENT: rales, rhonchi, wheezes Cardiovascular exam: PRESENT: RRR, +S1, +S2. ABSENT: diastolic murmur, rubs, systolic murmur Pulses: PRESENT: normal dorsalis pedis pul Vascular exam: PRESENT: normal capillary refill GI/Abdominal exam: PRESENT: normal bowel sounds, soft. ABSENT: distended, guarding, mass, organolmegaly, rebound, tenderness Rectal exam: PRESENT: deferred Extremities exam: PRESENT: full ROM. ABSENT: calf tenderness, clubbing, pedal edema Neurological exam: PRESENT: alert, awake, oriented to person, oriented to place, oriented to time, oriented to situation, CN II-XII grossly intact. ABSENT: motor sensory deficit Psychiatric exam: PRESENT: appropriate affect, normal mood. ABSENT: homicidal ideation, suicidal ideation Skin exam: PRESENT: dry, intact, warm. ABSENT: cyanosis, rash Results Laboratory Results: 10/27/18 06:39 10/27/18 06:39 10/27/18 10/27/18 06:39 06:39 WBC 14.2 H RBC 4.92 Hgb 13.3 L Hct 40.9 MCV 83 MCH 27.0 MCHC 32.4 RDW 14.5 H Plt Count 477 H Sodium 141.0 Potassium 4.4 Chloride 100 Carbon Dioxide 29 Anion Gap 12 BUN 13 Creatinine 0.56 Est GFR ( Amer) > 60 Est GFR (Non-Af Amer) > 60 Glucose 87 Calcium 10.2 Magnesium 2.2 10/24/18 18:53 Clean Catch Midstream Urine Culture - Final NO GROWTH 2 DAYS 10/24/18 22:17 Troponin I < 0.012 NT-Pro-B Natriuret Pep 21 Impressions: Chest X-Ray 10/24/18 00:00 IMPRESSION: Mild pulmonary edema, possibly noncardiac pulmonary edema. Chest/Abdomen CTA 10/24/18 21:01 IMPRESSION: 1. No acute pulmonary embolism. 2. Findings consistent with diffuse small airways disease in both lungs, which may be infectious or inflammatory in etiology. Qualifiers - * PATIENT BEING DISCHARGED WITH ANY OF THE FOLLOWING DIAGNOSIS: No Acute Heart Failure Is this a Heart Failure Patient?: No Plan Discharge Plan: Follow up with primary care provider within [address] Hinkle's ([facility]) will call patient to schedule first appointment. Follow up with Dr. Batista in 6-8 weeks. Take medications as prescribed. Bactrim DS once daily for Pneumocystis jirovecii (PCP) prophylaxis. Return to the emergency department as needed for concerning symptoms. Time Spent: Greater than 30 Minutes
--- NOTE | 2018-11-03 16:41 | Physician Advisory Note ---
Physician Advisor ProgressNote .: Pursuant to the plan for Juventino Rodriguez, I have reviewed the medical record for this patient. Physician Advisor Statement: DCS states Ac Resp Failure due to "diffuse small airway dz (infectious vs inflammatory process)" - & a "confirmed H.flu infxn", which was tx'd w/Amox called in after cx resulted. These are the points needing clarifying in addendum to DCS: 1. What is the actual dx of the "H. flu infxn": - "PNA due to H.flu"? "Bronchitis due to H.flu"?, or ....? 2. Is the infxn dx (from #1 above) "AIDS-related"? or not related to AIDS? Thanks, CK
== END 2018-10-27 14:09 | disposition home or self-care (01) | DRG 974 ==
LOC: ER 17:21 → EH 10-25 00:40 → 2S 10-25 03:49
PROVIDERS: ADMIT Emergency Medicine; ATTEND Emergency Medicine
DX: B20 Human immunodeficiency virus [HIV] disease (principal); J14 Pneumonia due to Hemophilus influenzae; J96.01 Acute respiratory failure with hypoxia; R73.9 Hyperglycemia, unspecified; R91.8 Other nonspecific abnormal finding of lung field
CPT/HCPCS: 36415; 71046; 71275; 80048; 80053; 80061; 81001; 81332; 82803; 83036; 83516; 83605; 83735; 83880; 84439; 84443; 84481; 84484; 85025; 85027; 85610; 85652; 86038; 86256; 86360; 86701; 86702; 87040; 87070; 87077; 87086; 87205; 87536; 93005; 93010; 94640; 96361; 96374; 99285; J1644; J2920; J2930; J3490; J7030; J7120; J7614

== ENCOUNTER 2018-11-30 08:11 | Emergency (ER) | payer BC ==
[2018-11-30] MEDS: NORMAL SALINE 1000 ML 1,000 ML IV PRN ×2 (09:37→09:39)
[2018-11-30 09:55] LABS: ABSOLUTE BASOPHILS # (AUTO) 0.1 10^3/uL (0.0-0.2); ABSOLUTE MONOCYTES (AUTO) 1.5 10^3/uL (0.1-1.4); ABSOLUTE NEUT (AUTO) 7.8 10^3/uL (1.7-8.2); BASOPHILS % (AUTO) 0.5 % (0-2); EOSINOPHILS % (AUTO) 0.3 % (0-6); HEMATOCRIT 38.5 % (37.9-51.0); HEMOGLOBIN 12.9 g/dL (13.5-17.0); LYMPHOCYTES % (AUTO) 17.4 % (13-45); MEAN CORPUSCULAR HEMOGLOBIN 28.4 pg (27.0-33.4); MEAN CORPUSCULAR HGB CONC 33.5 g/dL (32.0-36.0); MEAN CORPUSCULAR VOLUME 85 fl (80-97); MONOCYTES % (AUTO) 13.4 % (3-13); PLATELET COUNT 539 10^3/uL (150-450); RED BLOOD COUNT 4.55 10^6/uL (4.35-5.55); RED CELL DISTRIBUTION WIDTH 16.2 % (11.5-14.0); SEGMENTED NEUTROPHILS % (AUTO) 68.4 % (42-78); TOTAL CELLS COUNTED % (AUTO) 100 %; WHITE BLOOD COUNT 11.4 10^3/uL (4.0-10.5)
[2018-11-30 10:00] LABS: APPEARANCE,URINE SLIGHTLY-CLOUDY; BILIRUBIN,URINE NEGATIVE (NEGATIVE); COLOR,URINE YELLOW; GLUCOSE, URINE NEGATIVE (NEGATIVE); KETONES,URINE TRACE mg/dL (NEGATIVE); LEUKOCYTE ESTERASE,URINE NEGATIVE (NEGATIVE); NITRITE,URINE NEGATIVE (NEGATIVE); PROTEIN,URINE NEGATIVE (NEGATIVE)
--- NOTE | 2018-11-30 10:10 | RADIOLOGY REPORT (SQ) ---
EXAM DESCRIPTION: CHEST 2 VIEWS COMPLETED DATE/TIME: 11/30/2018 10:01 am REASON FOR STUDY: cough cold COMPARISON: 10/24/2018. EXAM PARAMETERS: NUMBER OF VIEWS: two views TECHNIQUE: Digital Frontal and Lateral radiographic views of the chest acquired. RADIATION DOSE: NA LIMITATIONS: none FINDINGS: LUNGS AND PLEURA: Mild diffuse interstitial prominence. Focal consolidation in the left u pper lobe. Faint airspace disease in the lung bases, left greater than right. No pleural effusions. MEDIASTINUM AND HILAR STRUCTURES: No masses or contour abnormalities. HEART AND VASCULAR STRUCTURES: Heart normal size. No evidence for failure. BONES: No acute findings. HARDWARE: None in the chest. OTHER: No other significant finding. IMPRESSION: FOCAL CONSOLIDATION IN THE LEFT UPPER LOBE MOST CONSISTENT WITH PNEUMONIA. FAINT AIRSPA CE DISEASE IN THE LUNG BASES, LEFT GREATER THAN RIGHT, MAY REPRESENT ADDITIONAL AREAS OF PNEUMONIA. TECHNICAL DOCUMENTATION: JOB ID: [id number] [employer]- All Rights Reserved Reading location - IP/workstation name: [email or web address]
[2018-11-30 10:13] LABS: ALANINE AMINOTRANSFERASE 11 U/L (21-72); ALBUMIN 3.8 g/dL (3.5-5.0); ALKALINE PHOSPHATASE 106 U/L (38-126); ANION GAP 11 (5-19); ASPARTATE AMINO TRANSFERASE 15 U/L (17-59); BILIRUBIN,DIRECT 0.3 mg/dL (0.0-0.4); BILIRUBIN,TOTAL 0.5 mg/dL (0.2-1.3); BLOOD UREA NITROGEN 9 mg/dL (7-20); CALCIUM 9.6 mg/dL (8.4-10.2); CARBON DIOXIDE 28 mmol/L (22-30); CHLORIDE 99 mmol/L (98-107); GLUCOSE 110 mg/dL (75-110); LIPASE 85.4 U/L (23-300); POTASSIUM 4.4 mmol/L (3.6-5.0); SODIUM 138.3 mmol/L (137-145); TOTAL PROTEIN 7.3 g/dL (6.3-8.2)
[2018-11-30 10:25] LABS: URINE AMPHETAMINES SCREEN NEGATIVE; URINE BARBITURATES SCREEN NEGATIVE; URINE BENZODIAZEPINES SCREEN NEGATIVE; URINE COCAINE SCREEN NEGATIVE; URINE MARIJUANA (THC) SCREEN NEGATIVE; URINE METHADONE SCREEN NEGATIVE; URINE PHENCYCLIDINE SCREEN NEGATIVE
[2018-11-30 10:40] VITALS: BP 124/72
[2018-11-30] MEDS ORDERED: PREDNISONE 20 MG TABLET PO ONE (10:58)
[2018-11-30] MEDS ORDERED: SULFAMETHOXAZOLE/TRIMETHOPRIM 800-160 MG TABLET PO ONE (10:58)
[2018-11-30] MEDS ORDERED: DOXYCYCLINE HYCLATE 100 MG TABLET PO ONE (10:58)
--- NOTE | 2018-11-30 10:58 | ER Document Report ---
ED Respiratory Problem - General Chief Complaint: Cold Symptoms Stated Complaint: COLD SYMPTOMS Time Seen by Provider: 11/30/18 09:09 Mode of Arrival: Ambulatory Information source: Patient Notes: 43-year-old male presented to ED for complaint of cough cold congestion for a week. He denies any sore throat nausea or vomiting or any other distress. He states he was diagnosed with pneumonia with complication of HIV in October. He states he is got over that and then about a week ago he got very sick again. When he came to the emergency room his pulse was 127. He states he was very tired and short of breath and weak. Patient was alert and oriented but short of breath when I first examined him. TRAVEL OUTSIDE OF THE [place] IN LAST 30 DAYS: No - HPI Patient complains to provider of: Cough, Short of breath Onset: Last week Duration: Continuous Initiating Event: URI Quality of pain: Achy Pain Level: 2 Context: Smoker, Other - Recent diagnosis of pneumonia in October as well as HIV Cough: Productive Sputum amount: Moderate Sputum color: Green, Yellow Sputum consistency: Thick Associated symptoms: Chills, Congestion, Cough, Fever, PND, Runny nose, Sinus pain/pressure, Short of breath Similar symptoms previously: Yes Recently seen / treated by doctor: Yes - Related Data Allergies/Adverse Reactions: No Known Allergies Allergy (Verified 11/30/18 08:13) Past Medical History - General Information source: Patient - Social History Smoking Status: Never Smoker Frequency of alcohol use: None Drug Abuse: None Lives with: Family Family History: Reviewed & Not Pertinent, Hypertension. denies: CAD, DM, Malignancy Patient has suicidal ideation: No Patient has homicidal ideation: No - Past Medical History Cardiac Medical History: Reports: None Pulmonary Medical History: Reports: Hx Pneumonia Denies: Hx Asthma, Hx COPD EENT Medical History: Reports: None Neurological Medical History: Reports: None. Denies: Hx Seizures Endocrine Medical History: Reports: None Renal/ Medical History: Reports: None Malignancy Medical History: Reports None GI Medical History: Reports: None Musculoskeletal Medical History: Reports None Skin Medical History: Reports None Psychiatric Medical History: Reports: None Traumatic Medical History: Reports: None Infectious Medical History: Reports: Hx HIV Surgical Hx: Negative Past Surgical History: Reports: None - Immunizations Hx Diphtheria, Pertussis, Tetanus Vaccination: Yes Review of Systems - Review of Systems Constitutional: Chills, Fever, Recent illness EENT: Sinus pressure, Sinus discharge Cardiovascular: No symptoms reported Respiratory: Cough, Short of breath Gastrointestinal: No symptoms reported Genitourinary: No symptoms reported Male Genitourinary: No symptoms reported Musculoskeletal: No symptoms reported Skin: No symptoms reported Hematologic/Lymphatic: No symptoms reported Neurological/Psychological: Weakness -: Yes All other systems reviewed and negative Physical Exam - Vital signs Vitals: Temp Pulse Resp BP Pulse Ox 99 F 127 H 20 138/81 H 93 11/30/18 08:37 11/30/18 08:37 11/30/18 08:37 11/30/18 08:37 11/30/18 08:37 Interpretation: Tachycardic, Tachypneic - General General appearance: Appears well, Alert - HEENT Head: Normocephalic, Atraumatic Eyes: Normal Pupils: PERRL Ears: Normal External canal: Normal Tympanic membrane: Normal Nasal: Purulent discharge, Swelling Mouth/Lips: Normal Mucous membranes: Normal Pharynx: Post nasal drainage Neck: Normal - Respiratory Respiratory status: No respiratory distress Chest status: Nontender Breath sounds: Productive cough, Rales, Rhonchi Chest palpation: Normal - Cardiovascular Rhythm: Regular Heart sounds: Normal auscultation Murmur: No - Abdominal Inspection: Normal Distension: No distension Bowel sounds: Normal Tenderness: Nontender Organomegaly: No organomegaly - Back Back: Normal, Nontender - Extremities General upper extremity: Normal inspection, Nontender, Normal color, Normal ROM, Normal temperature General lower extremity: Normal inspection, Nontender, Normal color, Normal ROM, Normal temperature, Normal weight bearing. No: Angel's sign - Neurological Neuro grossly intact: Yes Cognition: Normal Orientation: AAOx4 [place] Coma Scale Eye Opening: Spontaneous [place] Coma Scale Verbal: Oriented [place] Coma Scale Motor: Obeys Commands Arthur Coma Scale Total: 15 Speech: Normal Motor strength normal: LUE, RUE, LLE, RLE Sensory: Normal - Psychological Associated symptoms: Normal affect, Normal mood - Skin Skin Temperature: Warm Skin Moisture: Dry Skin Color: Normal Course - Re-evaluation Re-evalutation: 11/30/18 21:33 At 1059 this morning I consulted Dr. Meek concerning the x-ray vital signs and lab results on this gentleman. He did have bilateral lung pneumonia in the bases with a left infiltrate in the upper lobe. He recommended that they call Dr. Wilhelm who is on for the hospitalist to consult with him concerning the treatment he recommended due to the fact that the patient was recently seen by the hospitalist discharged home on Bactrim. During this admission he was found to have HIV positive. He has been recommended to follow-up with the infectious disease doctor as well as pulmonology. He states he has been keeping his follow-up appointments as scheduled. He states he got much better from his last admission and then got sick again about a week ago. By the time I got the x-ray results back and the lab results back I had already given the patient 2 L of fluids for his pulse and weakness. He stated he was feeling much better. His temperature was 98.8 his O2 sat was 97% pulse was down to 104 and his blood pres sure was 124/72. Dr. Wilhelm recommended treatment with Bactrim and doxycycline as well is prednisone 20 mg daily for week 15 mg daily for week 10 mg for week and then 5 mg for a week. He should be following up with his infectious disease again by then. He also recommend patient be instructed to return to the ED for any increase in symptoms. These instructions were given to the patient prescri ptions were written and patient was discharged home. Patient stated he felt much better after the IV fluids and he would take treatments as prescribed. Patient was discharged home. - Vital Signs Vital signs: Temp Pulse Resp BP Pulse Ox 98.8 F 104 H 22 H 124/72 97 11/30/18 10:39 11/30/18 10:39 11/30/18 10:39 11/30/18 10:39 11/30/18 10:39 - Laboratory Result Diagrams: 11/30/18 09:33 11/30/18 09:33 Laboratory results interpreted by me: 11/30/18 11/30/18 11/30/18 09:33 09:33 09:33 WBC 11.4 H Hgb 12.9 L RDW 16.2 H Plt Count 539 H Monocytes % 13.4 H Absolute Monocytes 1.5 H AST 15 L ALT 11 L Urine Ketones TRACE H Urine Blood SMALL H Urine Urobilinogen 4.0 H - Diagnostic Test Radiology reviewed: Image reviewed, Reports reviewed Discharge - Discharge Clinical Impression: HIV antibody positive Pneumonia Qualifiers: Pneumonia type: due to unspecified organism Laterality: unspecified laterality Lung location: unspecified part of lung Qualified Code(s): J18.9 - Pneumonia, unspecified organism Condition: Stable Disposition: HOME, SELF-CARE Additional Instructions: PNEUMONIA: Your examination indicates that you have pneumonia. This is an infection of the lung tissue, usually caused by bacteria or a virus. Symptoms include cough, fever, shaking chills, chest pain, shortness of breath, and coughing up bloody sputum. Treatment for bacterial pneumonia includes rest, antibiotics for 10 to 14 days, increasing your clear liquid intake, a cool mist humidifier at your beds rosales, and fever medication. Often, a repeat chest X-ray is performed in a few weeks--even if you feel better--to ascertain whether the infection has completely resolved and no underlying lung problem is present. You should call the physician if you develop persistent vomiting, high fever that does not respond to fever medication, increasing shortness of breath, confusion, or lethargy. Also, failure to improve within two to three days is an indication for re-examination. DOXYCYCLINE: Doxycycline (Vibramycin, Doryx) is an antibiotic of the tetracycline family. This type of drug is useful for infections of the respiratory tract and genital tract, and is sometimes used for intestinal infections. Unlike most tetracyclines, doxycycline can be taken with food. It is longer acting, and (usually) less prone to side effects than regular tetracycline. Tetracycline antibiotics can stain immature teeth and SHOULD NOT BE TAKEN BY CHILDREN, NURSING MOTHERS, OR WOMEN. Tetracyclines can make you more prone to sunburn. Abdominal cramping, nausea, and diarrhea are occasional side effects. Women may experience vaginal yeast infections. Call the doctor at once if you develop hives, itching, shortness of breath, or lightheadedness. Sulfa Medications The antibiotic you have received is a member of the sulfa family. These antibiotics are commonly used for eye, ear, lung, or urinary infections. Sulfa antibiotics are best taken on an empty stomach. Extra glasses of water help the kidney process the antibiotic. Sulfas are not recommended for infants under two months, or for women near the end of . Occasional side effects can include nausea or diarrhea. Stop the medication and notify your doctor at once if you develop any skin rash, bruising, jaundice (yellow color of the skin), itching, swelling, joint pain, faintness, or shortness of breath, or if you note any other new or unusual symptoms. STEROID MEDICATION: You have been given a medicine of the cortisone/steroid class. This medication is used to control inflammation or allergy. It is usually only given for a short period of time, until the acute process subsides. There are usually no side effects from short-term use of cortisone-like medications. Some persons feel an increased sense of well-being and are not sleepy at bedtime. Long-term use of cortisone medications is best avoided, unless required for a severe condition. If your condition does not remit, or relapses after the course of corticosteroid medication, you should consult your physician. USE OF ACETAMINOPHEN (Tylenol): Acetaminophen may be taken for pain relief or fever control. It's much safer than aspirin, offering a wider range of "safe" dosages. It is safe during . Some brand names are Tylenol, Panadol, Datril, Anacin 3, Tempra, and Liquiprin. Acetaminophen can be repeated every four hours. The following are maximum recommended dosages: WEIGHT Dose Drops Elixir Chewable(80mg) (LBS.) drprs=droppers tsp=teaspoon 6 40 mg 0.4 ml (1/2) 6-11 80 mg 0.8 ml (full) tsp 1 tab 12-16 120 mg 1 1/2 drprs 3/4 tsp 1 1/2 tabs 17-23 160 mg 2 drprs 1 tsp 2 tabs 24-30 240 mg 3 drprs 1 1/2 tsp 3 tabs 30-35 320 mg 2 tsp 4 tabs 36-41 360 mg 2 1/4 tsp 4 1/2 tabs 42-47 400 mg 2 1/2 tsp 5 tabs 48-53 480 mg 3 tsp 6 tabs 54-59 520 mg 3 1/4 tsp 6 1/2 tabs 60-64 560 mg 3 1/2 tsp 7 tabs 65-70 600 mg 3 3/4 tsp 7 1/2 tabs 71-76 640 mg 4 tsp 8 tabs 77-82 720 mg 4 1/2 tsp 9 tabs 83-88 800 mg 5 tsp 10 tabs >89 pounds or adults 650 mg to 900 mg Acetaminophen can be repeated every four hours. Maximum dose not to exceed 4000 mg a day. These maximum recommended dosages are slightly higher than the dosages written on the product container, but these dosages are very safe and below the toxic dosage for acetaminophen. FOLLOW-UP CARE: If you have been referred to a physician for follow-up care, call the physician s office for an appointment as you were instructed or within the next two days. If you experience worsening or a significant change in your symptoms, notify the physician immediately or return to the Emergency Department at any time for re-evaluation. Follow-up with your primary care provider within [address] Hinkle's the infectious disease in [place] to schedule your first appointment. These continue all follow-up visits as previously instructed. Prescriptions: Doxycycline Hyclate 100 mg PO BID #20 capsule Prednisone [Deltasone 5 mg Tablet] 5 mg PO ASDIR PRN #70 tablet PRN Reason: Sulfamethoxazole/Trimethoprim [Bactrim Ds Tablet] 1 each PO BID #20 tablet
--- NOTE | 2018-11-30 22:11 | EKG REPORT ---
SEVERITY:- ABNORMAL ECG - SINUS TACHYCARDIA PROBABLE LEFT ATRIAL ABNORMALITY PROBABLE RIGHT VENTRICULAR HYPERTROPHY : Confirmed by: Criss Jenkins 30-Nov-2018 22:11:06
== END 2018-11-30 11:21 | disposition home or self-care (01) ==
LOC: ER 08:11
DX: J18.9 Pneumonia, unspecified organism (principal); Z21 Asymptomatic human immunodeficiency virus [HIV] infection status; R05 Cough; R06.02 Shortness of breath; R53.1 Weakness; R09.82 Postnasal drip; R50.9 Fever, unspecified; J34.89 Other specified disorders of nose and nasal sinuses
CPT/HCPCS: 93005; 99284; 96360; 96361; 36415; 83690; 85025; 80053; 81001; 84484; 80307; 71046; 93010; J7512; J7030

== ENCOUNTER 2019-02-08 14:24 | Inpatient (IN) | payer BC ==
[2019-02-08] MEDS ORDERED: ACETAMINOPHEN 325 MG TABLET PO ONE (15:06)
[2019-02-08] MEDS ORDERED: NORMAL SALINE 1000 ML 2,000 ML IV ONE (15:06)
[2019-02-08] MEDS ORDERED: CEFTRIAXONE 2 GM/D5W RTU 2 GM/50 ML RTUPB IV ONE (15:10)
--- NOTE | 2019-02-08 15:12 | ER Document Report ---
ED Medical Screen (RME) - General Chief Complaint: Cough Stated Complaint: BODY ACHES Time Seen by Provider: 02/08/19 15:06 Mode of Arrival: Ambulatory Information source: Patient Notes: 43-year-old male presented to ED for complaint of chest pain body aches oriented urine. He states he has been drinking fluids but his urine is orange. He is HIV positive he does have a history of asthma. He has a blood pressure of 130/97 a pulse of 146 a temperature of 103.3 when I examined him. He states he has been having chills all day. I have started a sepsis protocol and ordered 2 L normal saline and 2 g of Rocephin IV. I have greeted and performed a rapid initial assessment of this patient. A comprehensive ED assessment and evaluation of the patient, analysis of test results and completion of medical decision making process will be conducted by an additional ED providers. TRAVEL OUTSIDE OF THE [place] IN LAST 30 DAYS: No - Related Data Allergies/Adverse Reactions: No Known Allergies Allergy (Verified 02/08/19 14:25) Past Medical History - Past Medical History Cardiac Medical History: Denies: Hx Coronary Artery Disease, Hx Hypertension Pulmonary Medical History: Reports: Hx Pneumonia Denies: Hx Asthma, Hx COPD Neurological Medical History: Denies: Hx Seizures Endocrine Medical History: Denies: Hx Diabetes Mellitus Type 1, Hx Diabetes Mellitus Type 2, Hx Hyperthyroidism, Hx Hypothyroidism Renal/ Medical History: Denies: Hx Peritoneal Dialysis GI Medical History: Denies: Hx Cirrhosis, Hx Crohn's Disease, Hx Hepatitis, Hx Ulcerative Colitis Musculoskeltal Medical History: Denies Hx Arthritis, Denies Hx Gout Skin Medical History: Denies Hx Eczema Infectious Medical History: Reports: Hx HIV. Denies: Hx Hepatitis - Immunizations Hx Diphtheria, Pertussis, Tetanus Vaccination: Yes Physical Exam - Vital signs Vitals: Temp Pulse Resp BP Pulse Ox 99.6 F 142 H 14 134/69 H 95 02/08/19 14:34 02/08/19 14:34 02/08/19 14:34 02/08/19 14:34 02/08/19 14:34 Course - Vital Signs Vital signs: Temp Pulse Resp BP Pulse Ox 99.6 F 142 H 14 134/69 H 95 02/08/19 14:34 02/08/19 14:34 02/08/19 14:34 02/08/19 14:34 02/08/19 14:34
[2019-02-08 15:43] LABS: HEMATOCRIT 39.9 % (37.9-51.0); HEMOGLOBIN 13.4 g/dL (13.5-17.0); MEAN CORPUSCULAR HEMOGLOBIN 28.3 pg (27.0-33.4); MEAN CORPUSCULAR HGB CONC 33.6 g/dL (32.0-36.0); MEAN CORPUSCULAR VOLUME 84 fl (80-97); PLATELET COUNT 308 10^3/uL (150-450); RED BLOOD COUNT 4.72 10^6/uL (4.35-5.55); RED CELL DISTRIBUTION WIDTH 14.4 % (11.5-14.0); WHITE BLOOD COUNT 19.7 10^3/uL (4.0-10.5)
[2019-02-08 15:54] LABS: INTERNATIONAL RATION (INR) 1.28
[2019-02-08 16:01] LABS: ALBUMIN 3.9 g/dL (3.5-5.0); ALKALINE PHOSPHATASE 100 U/L (38-126); ANION GAP 11 (5-19); ASPARTATE AMINO TRANSFERASE 19 U/L (17-59); BILIRUBIN,DIRECT 0.2 mg/dL (0.0-0.4); BLOOD UREA NITROGEN 12 mg/dL (7-20); CALCIUM 9.6 mg/dL (8.4-10.2); CARBON DIOXIDE 27 mmol/L (22-30); CHLORIDE 94 mmol/L (98-107); GLUCOSE 218 mg/dL (75-110); POTASSIUM 4.2 mmol/L (3.6-5.0); TOTAL PROTEIN 7.4 g/dL (6.3-8.2)
[2019-02-08 16:13] LABS: ABSOLUTE LYMPHOCYTES# (MANUAL) 0.6 10^3/uL (0.5-4.7); ABSOLUTE MONOCYTES # (MANUAL) 1.2 10^3/uL (0.1-1.4); BAND NEUTROPHILS % (MANUAL) 2 % (3-5); BASOPHILS % (MANUAL) 0 % (0-2); EOSINOPHILS % (MANUAL) 0 % (0-6); LYMPHOCYTES % (MANUAL) 3 % (13-45); MONOCYTES % (MANUAL) 6 % (3-13); SEGMENTED NEUTROPHILS % (MAN) 89 % (42-78); TOTAL CELLS COUNTED 100
[2019-02-08 16:14] LABS: ANISOCYTOSIS SLIGHT; PLATELET COMMENT ADEQUATE; PLATELET LARGE PRESENT; TOXIC VACUOLATION PRESENT
[2019-02-08 16:16] LABS: POLYCHROMASIA SLIGHT
[2019-02-08 16:24] LABS: APPEARANCE,URINE SLIGHTLY-CLOUDY; BILIRUBIN,URINE NEGATIVE (NEGATIVE); GLUCOSE, URINE NEGATIVE (NEGATIVE); KETONES,URINE 20 mg/dL (NEGATIVE); LEUKOCYTE ESTERASE,URINE NEGATIVE (NEGATIVE); NITRITE,URINE NEGATIVE (NEGATIVE); PROTEIN,URINE 100 mg/dL (NEGATIVE); URINE SPECIFIC GRAVITY 1.025
[2019-02-08 16:25] LABS: COLOR,URINE YELLOW
--- NOTE | 2019-02-08 16:29 | RADIOLOGY REPORT (SQ) ---
EXAM DESCRIPTION: CHEST 2 VIEWS COMPLETED DATE/TIME: 02/08/2019 4:20 pm REASON FOR STUDY: sepsis COMPARISON: 11/30/2018 EXAM PARAMETERS: NUMBER OF VIEWS: two views TECHNIQUE: Digital Frontal and Lateral radiographic views of the chest acquired. RADIATION DOSE: NA LIMITATIONS: none FINDINGS: LUNGS AND PLEURA: Persistent left upper lobe and left basilar airspace disease. Left uppe r lobe infiltrate is slightly smaller. On lateral projection the left basilar infiltrate appears to have increased. This is less apparent on the PA projection. Right lung field is unchanged. MEDIASTINUM AND HILAR STRUCTURES: No masses or contour abnormalities. HEART AND VASCULAR STRUCTURES: Heart normal size. No evidence for failure. BONES: No acute findings. HARDWARE: None in the chest. OTHER: No other significant finding. IMPRESSION: 1. Persistent left upper lobe airspace disease slightly improved from November. 2. Left basilar infiltrate appears slightly worse in the lateral projection. TECHNICAL DOCUMENTATION: JOB ID: [id number] [employer]- All Rights Reserved Reading location - IP/workstation name: [email or web address]
--- NOTE | 2019-02-08 16:40 | ER Document Report ---
ED General - General Chief Complaint: Cough Stated Complaint: BODY ACHES Time Seen by Provider: 02/08/19 15:06 Primary Care Provider: LEONCIO JUDGE PA-C [Primary Care Provider] - Follow up as needed Mode of Arrival: Ambulatory Notes: 43-year-old HIV-positive male presents emergency department complaining of fever, myalgias, headache, productive cough, shortness of breath and fatigue associated with nausea and diarrhea but no vomiting for the past 2 days. Patient states that he was diagnosed with HIV approximately a year ago and his viral load is still detectable and his CD4 count has been increasing but he does not know what it is. He is not certain what his medications are but states he is compliant with them. Sees Dr. Hameed in [place]. TRAVEL OUTSIDE OF THE [place] IN LAST 30 DAYS: No - Related Data Allergies/Adverse Reactions: No Known Allergies Allergy (Verified 02/08/19 14:25) Past Medical History - General Information source: Patient - Social History Smoking Status: Never Smoker Chew tobacco use (# tins/day): No Frequency of alcohol use: None Drug Abuse: None Family History: Reviewed & Not Pertinent, Hypertension. denies: CAD, DM, Malignancy Patient has suicidal ideation: No Patient has homicidal ideation: No - Past Medical History Cardiac Medical History: Denies: Hx Coronary Artery Disease, Hx Hypertension Pulmonary Medical History: Reports: Hx Pneumonia Denies: Hx Asthma, Hx COPD Neurological Medical History: Denies: Hx Seizures Endocrine Medical History: Denies: Hx Diabetes Mellitus Type 1, Hx Diabetes Jennifer litus Type 2, Hx Hyperthyroidism, Hx Hypothyroidism Renal/ Medical History: Denies: Hx Peritoneal Dialysis GI Medical History: Denies: Hx Cirrhosis, Hx Crohn's Disease, Hx Hepatitis, Hx Ulcerative Colitis Musculoskeletal Medical History: Denies Hx Arthritis, Denies Hx Gout Skin Medical History: Denies Hx Eczema Infectious Medical History: Reports: Hx HIV. Denies: Hx Hepatitis - Immunizations Hx Diphtheria, Pertussis, Tetanus Vaccination: Yes Review of Systems - Review of Systems Constitutional: See HPI, Fever, Malaise, Weakness EENT: See HPI, Nose congestion, Nose discharge Cardiovascular: No symptoms reported Respiratory: See HPI Gastrointestinal: Diarrhea, Nausea Genitourinary: No symptoms reported -: Yes All other systems reviewed and negative Physical Exam - Vital signs Vitals: Temp Pulse Resp BP Pulse Ox 99.6 F 142 H 14 134/69 H 95 02/08/19 14:34 02/08/19 14:34 02/08/19 14:34 02/08/19 14:34 02/08/19 14:34 Interpretation: Tachycardic - Notes Notes: GENERAL: Alert, interacts well. No acute distress. HEAD: Normocephalic, atraumatic EYES: Pupils equal, round and reactive to light, extraocular movements intact. ENT: Oral mucosa moist, tongue midline. NECK: Full range of motion, supple, trachea midline. LUNGS: Crackles in the right lower lobe, no wheezes or rales, no respiratory distress. HEART: Tachycardic rate, regular rhythm, no murmurs, gallops, rubs. ABDOMEN: Soft, nontender, nondistended, bowel sounds present in all 4 quadrants. EXTREMITIES: Moves all 4 extremities spontaneously, no edema, radial and dorsalis pedis pulses 2/4 bilaterally. No cyanosis. NEUROLOGICAL: Alert and oriented x3, normal speech, biceps and patellar DTRs 2+ bilaterally. PSYCH: Normal mood, normal affect. SKIN: Warm, Dry, normal turgor, no rashes or lesions noted. Course - Re-evaluation Re-evalutation: 02/08/19 16:47 CBC shows leukocytosis at 19.7, mild anemia, platelets normal, INR prolonged at 1.28, chemistry shows sodium low at 131.7, glucose elevated at 218, lactic acid normal at 1.8 troponin negative, urinalysis shows 20 ketones and moderate blood, chest x-ray shows persistent left upper lobe airspace density slightly improved from November but left basilar infiltrate appears slightly worse in the lateral projection. Sepsis protocol was initiated with Rocephin given empirically on arrival before the results of the chest x-ray. Fluids have been given. 02/08/19 16:47 - Vital Signs Vital signs: Temp Pulse Resp BP Pulse Ox 103.3 F H 146 H 23 H 118/71 98 02/08/19 15:08 02/08/19 15:08 02/08/19 15:29 02/08/19 15:29 02/08/19 15:29 - Laboratory Result Diagrams: 02/08/19 15:22 02/08/19 15:22 Laboratory results interpreted by me: 02/08/19 02/08/19 02/08/19 15:22 15:22 15:22 WBC 19.7 H Hgb 13.4 L RDW 14.4 H Seg Neuts % (Manual) 89 H Band Neutrophils % 2 L Lymphocytes % (Manual) 3 L Abs Neuts (Manual) 17.9 H PT 16.0 H Sodium 131.7 L Chloride 94 L Glucose 218 H Urine Protein Urine Ketones Urine Blood Urine Urobilinogen 02/08/19 16:00 WBC Hgb RDW Seg Neuts % (Manual) Band Neutrophils % Lymphocytes % (Manual) Abs Neuts (Manual) PT Sodium Chloride Glucose Urine Protein 100 H Urine Ketones 20 H Urine Blood MODERATE H Urine Urobilinogen 4.0 H - EKG Interpretation by Me Additional EKG results interpreted by me: 02/08/19 16:48 EKG shows sinus tachycardia at a rate of 136, normal axis, normal intervals, right ventricular hypertrophy, no ST segment elevations or depressions no abnormal T wave inversions per my interpretation. Discharge - Discharge Clinical Impression: HIV antibody positive Left lower lobe pneumonia Qualifiers: Pneumonia type: due to unspecified organism Qualified Code(s): J18.1 - Lobar pneumonia, unspecified organism Sepsis Qualifiers: Sepsis type: sepsis due to unspecified organism Sepsis acute organ dysfunction status: without acute organ dysfunction Qualified Code(s): A41.9 - Sepsis, unspecified organism Condition: Fair Disposition: ADMITTED INPATIENT Admitting Provider: Choco (Hospitalist) Unit Admitted: Telemetry Referrals: LEONCIO JUDGE PA-C [Primary Care Provider] - Follow up as needed
[2019-02-08] MEDS ORDERED: RINGERS SOLUTION,LACTATED 1,000 ML IV ONE (16:47)
[2019-02-08 17:19] LABS: A TYPE INFLUENZA AG NEGATIVE (NEGATIVE); B INFLUENZA AG NEGATIVE (NEGATIVE)
[2019-02-08 17:52] LABS: VENOUS BLOOD BASE EXCESS -1.9 mmol/L; VENOUS BLOOD PCO2 34.7 mmHg (35-63); VENOUS BLOOD PH 7.42 (7.30-7.42)
[2019-02-08] MEDS ORDERED: GUAIFENESIN SYRP 200 MG/10 ML UDC PO PRN (18:35)
[2019-02-08] MEDS ORDERED: ACETAMINOPHEN 325 MG TABLET PO PRN (18:35)
[2019-02-08] MEDS ORDERED: ALBUTEROL SULFATE 0.083% NEB 2.5 MG/3 ML AMPUL NEB PRN (18:35)
[2019-02-08] MEDS ORDERED: PHARMACY COMMUNICATION ORDER MC NR (18:45)
--- NOTE | 2019-02-08 18:48 | PDOC H&P ---
History of Present Illness Admission Date/PCP: 02/08/19 16:59 LEONCIO JUDGE PA-C Patient complains of: Fever with productive cough History of Present Illness: VERO RANGEL is a 43 year old male with history of 3 previous cases of pneumonia. Earlier this year he was diagnosed with HIV during an admission for pneumonia. He reports that he is usually quite careful even derma phobic but was in the supermarket several days ago and did not wipe down the handle of the shopping cart. Later that day he noted some chills and by the second day felt feverish. On Wednesday he began to notice a productive cough with sj colored sputum. He is not particularly short of breath. His appetite has been poor but he has been trying to keep up with liquids. He does have a history of a possible pulmonary nodule and is seeing Dr. Batista for that. He was referred to the hospital service for IV antibiotics for pneumonia. Past Medical History Cardiac Medical History: Denies: Coronary Artery Disease, Hypertension Pulmonary Medical History: Reports: Pneumonia Denies: Asthma, Chronic Obstructive Pulmonary Disease (COPD) EENT Medical History: Denies: Ears, Nose, Throat Neurological Medical History: Denies: Seizures Endocrine Medical History: Denies: Diabetes Mellitus Type 1, Diabetes Mellitus Type 2, Hyperthyroidism, Hypothyroidism Renal/ Medical History: Denies: Chronic Kidney Disease Malignancy Medical History: Reports: None GI Medical History: Denies: Cirrhosis, Crohn's Disease, Hepatitis, Ulcerative Colitis Musculoskeltal Medical History: Denies: Arthritis, Gout Skin Medical History: Denies: Eczema Psychiatric Medical History: Reports: None Traumatic Medical History: Reports: None Hematology: Denies: Anemia, Bleeding Tendencies Infectious Medical History: Reports: HIV Past Surgical History Past Surgical History: Reports: None Social History Information Source: Patient Lives with: Alone Smoking Status: Never Smoker Frequency of Alcohol Use: Rare Hx Recreational Drug Use: No Drugs: None Hx Prescription Drug Abuse: No - Advance Directive Resuscitation Status: Full Code Surrogate healthcare decision maker:: There is no current decision-maker designated. Family History Family History: Reviewed & Not Pertinent, DM, Hypertension. denies: CAD, Malignancy Parental Family History Reviewed: Yes Children Family History Reviewed: Yes Sibling(s) Family History Reviewed.: Yes Medication/Allergy Home Medications: Albuterol Sulfate [Albuterol Sulfate Hfa] 2 puff IH Q6HP PRN 02/08/19 Bictegrav/Emtricit/Tenofov Ala [Biktarvy 50-200-25 mg Tablet] 1 tab PO DAILY 02/08/19 Allergies/Adverse Reactions: No Known Allergies Allergy (Verified 02/08/19 14:25) Review of Systems Constitutional: PRESENT: anorexia, chills, fever(s) Eyes: ABSENT: visual disturbances Ears: ABSENT: hearing changes Nose, Mouth, and Throat: ABSENT: mouth pain Cardiovascular: ABSENT: chest pain, dyspnea on exertion, edema, palpitations Respiratory: PRESENT: cough, sputum. ABSENT: dyspnea Gastrointestinal: ABSENT: constipation, diarrhea, nausea, vomiting Genitourinary: ABSENT: dysuria, hematuria Musculoskeletal: ABSENT: deformity, joint swelling Integumentary: ABSENT: erythema, lesions, rash Neurological: ABSENT: abnormal gait, abnormal speech, confusion, memory loss Psychiatric: ABSENT: anxiety, depression, hallucinations Endocrine: ABSENT: cold intolerance, heat intolerance Hematologic/Lymphatic: ABSENT: easy bleeding, easy bruising Allergic/Immunologic: ABSENT: seasonal rhinorrhea Physical Exam Vital Signs: Temp Pulse Resp BP Pulse Ox 103.3 F H 146 H 21 H 112/71 100 02/08/19 15:08 02/08/19 15:08 02/08/19 17:01 02/08/19 18:01 02/08/19 18:01 Intake & Output 02/07/19 02/08/19 02/09/19 06:59 06:59 06:59 Intake Total 3050 Balance 3050 Weight 69.5 kg General appearance: PRESENT: no acute distress, cooperative, well-developed Head exam: PRESENT: atraumatic, normocephalic Eye exam: PRESENT: conjunctiva pink, EOMI. ABSENT: scleral icterus Ear exam: PRESENT: normal external ear exam. ABSENT: bleeding, drainage Mouth exam: PRESENT: dry mucosa, tongue midline Teeth exam: ABSENT: poor dentation Neck exam: PRESENT: full ROM. ABSENT: JVD, lymphadenopathy, tenderness Respiratory exam: PRESENT: rhonchi - Right base, symmetrical, unlabored. ABSENT: rales, tachypnea, wheezes Cardiovascular exam: PRESENT: RRR, +S1, +S2 Pulses: PRESENT: normal radial pulses, +2 pedal pulses bilateral GI/Abdominal exam: PRESENT: normal bowel sounds, soft. ABSENT: distended, guarding, tenderness Rectal exam: PRESENT: deferred Extremities exam: ABSENT: calf tenderness, joint swelling, pedal edema Musculoskeletal exam: PRESENT: ambulatory, full ROM, normal inspection Neurological exam: PRESENT: alert, awake, oriented to person, oriented to place, oriented to time, oriented to situation, CN II-XII grossly intact. ABSENT: motor sensory deficit Psychiatric exam: PRESENT: appropriate affect, normal mood. ABSENT: agitated, anxious Focused psych exam: ABSENT: delusional, restlessness Skin exam: PRESENT: dry, normal color, warm. ABSENT: rash Results Laboratory Results: 02/08/19 15:22 02/08/19 15:22 02/08/19 02/08/19 02/08/19 15:22 15:22 15:22 WBC 19.7 H RBC 4.72 Hgb 13.4 L Hct 39.9 MCV 84 MCH 28.3 MCHC 33.6 RDW 14.4 H Plt Count 308 Seg Neutrophils % Not Reportable VBG pH VBG pCO2 VBG HCO3 VBG Base Excess Sodium 131.7 L Potassium 4.2 Chloride 94 L Carbon Dioxide 27 Anion Gap 11 BUN 12 Creatinine 1.02 Est GFR ( Amer) > 60 Glucose 218 H Lactic Acid 1.8 Calcium 9.6 Total Bilirubin 1.0 AST 19 Alkaline Phosphatase 100 Total Protein 7.4 Albumin 3.9 Urine Color Urine Appearance Urine pH Ur Specific [place] Urine Protein Urine Glucose (UA) Urine Ketones Urine Blood Urine Nitrite Ur Leukocyte Esterase Urine WBC (Auto) Urine RBC (Auto) 02/08/19 02/08/19 16:00 17:30 WBC RBC Hgb Hct MCV MCH MCHC RDW Plt Count Seg Neutrophils % VBG pH 7.42 VBG pCO2 34.7 L VBG HCO3 22.0 VBG Base Excess -1.9 Sodium Potassium Chloride Carbon Dioxide Anion Gap BUN Creatinine Est GFR ( Amer) Glucose Lactic Acid Calcium Total Bilirubin AST Alkaline Phosphatase Total Protein Albumin Urine Color YELLOW Urine Appearance SLIGHTLY-CLOUDY Urine pH 6.0 Ur Specific [place] 1.025 Urine Protein 100 H Urine Glucose (UA) NEGATIVE Urine Ketones 20 H Urine Blood MODERATE H Urine Nitrite NEGATIVE Ur Leukocyte Esterase NEGATIVE Urine WBC (Auto) 1 Urine RBC (Auto) 5 02/08/19 15:06 Troponin I < 0.012 Impressions: Chest X-Ray 02/08/19 15:06 IMPRESSION: 1. Persistent left upper lobe airspace disease slightly improved from [place]. 2. Left basilar infiltrate appears slightly worse in the lateral projection. Assessment and Plan - Diagnosis (1) Left lower lobe pneumonia Qualifiers: Pneumonia type: due to unspecified organism Qualified Code(s): J18.1 - Lobar pneumonia, unspecified organism Is this a current diagnosis for this admission?: Yes Plan: The patient has left greater than right infiltrates on x-ray. He in fact was more rhonchorous on the right. I believe the left side is the area of the nodule that Dr. Batista is following. The patient will be placed on dual antibiotic therapy. He cannot remember his last CD4 count but he does remember that the infectious disease doctor told him that it was improving. He was coughing up rust colored sputum. I have asked that a culture be obtained. He could just as easily have a bacterial pneumonia as an atypical pneumonia. His white blood cell count was 19,000 on admission and a second CBC is pending this morning. (2) AIDS (acquired immunodeficiency syndrome), CD4 <=200 Is this a current diagnosis for this admission?: Yes Plan: The patient does not remember his last CD4 count. In October during a hospitalization at [place] it was 100. We will continue his antiretroviral medication. As it is not on formulary the patient will take his own and he has it with him. - Time Time Spent with patient: 35 or more minutes Medications reviewed and adjusted accordingly: Yes Anticipated discharge: Home - Inpatient Certification Based on my medical assessment, after consideration of the patient's comorbidities, presenting symptoms, or acuity I expect that the services needed warrant INPATIENT care.: Yes I certify that my determination is in accordance with my understanding of Medicare's requirements for reasonable and necessary INPATIENT services [42 CFR 412.3e].: Yes Medical Necessity: Need For IV Fluids, Need for IV Antibiotics
[2019-02-08] MEDS ORDERED: AZITHROMYCIN 500 MG in DEXTROSE 5%-WATER 250 ML IV SCH (20:00)
[2019-02-08] MEDS: RINGERS SOLUTION,LACTATED 1,000 ML IV PRN (20:29)
[2019-02-08] MEDS: FAMOTIDINE 20 MG TABLET PO SCH (21:33)
[2019-02-09] MEDS: RINGERS SOLUTION,LACTATED 1,000 ML IV PRN (04:00)
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
[2019-02-09 06:23] LABS: HEMATOCRIT 37.7 % (37.9-51.0); HEMOGLOBIN 12.4 g/dL (13.5-17.0); MEAN CORPUSCULAR HEMOGLOBIN 28.1 pg (27.0-33.4); MEAN CORPUSCULAR HGB CONC 32.9 g/dL (32.0-36.0); MEAN CORPUSCULAR VOLUME 85 fl (80-97); PLATELET COUNT 238 10^3/uL (150-450); RED BLOOD COUNT 4.41 10^6/uL (4.35-5.55); RED CELL DISTRIBUTION WIDTH 14.3 % (11.5-14.0); WHITE BLOOD COUNT 12.9 10^3/uL (4.0-10.5)
[2019-02-09 06:41] LABS: ANION GAP 7 (5-19); BLOOD UREA NITROGEN 8 mg/dL (7-20); CALCIUM 9.4 mg/dL (8.4-10.2); CARBON DIOXIDE 29 mmol/L (22-30); CHLORIDE 104 mmol/L (98-107); GLUCOSE 100 mg/dL (75-110); POTASSIUM 4.8 mmol/L (3.6-5.0)
[2019-02-09 07:01] LABS: ABSOLUTE LYMPHOCYTES# (MANUAL) 1.8 10^3/uL (0.5-4.7); ABSOLUTE MONOCYTES # (MANUAL) 0.8 10^3/uL (0.1-1.4); ANISOCYTOSIS SLIGHT; BAND NEUTROPHILS % (MANUAL) 1 % (3-5); BASOPHILS % (MANUAL) 0 % (0-2); EOSINOPHILS % (MANUAL) 1 % (0-6); LYMPHOCYTES % (MANUAL) 14 % (13-45); MONOCYTES % (MANUAL) 6 % (3-13); OVALOCYTES SLIGHT; POIKILOCYTOSIS SLIGHT; SEGMENTED NEUTROPHILS % (MAN) 78 % (42-78); TOTAL CELLS COUNTED 100
[2019-02-09 07:02] LABS: PLATELET COMMENT ADEQUATE
[2019-02-09] MEDS: FAMOTIDINE 20 MG TABLET PO SCH (09:45)
[2019-02-09] MEDS ORDERED: BIKTARVY PO SCH (10:00)
[2019-02-09] MEDS ORDERED: (PENDING PHARMACY ID) (Bictegrav/Emtricit/Tenofov Ala [Biktarvy 50-200-25 Mg Tablet] 1 TAB PO SCH (10:00)
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
[2019-02-09 11:27] VITALS: BP 115/71
--- NOTE | 2019-02-09 14:25 | EKG REPORT ---
SEVERITY:- ABNORMAL ECG - SINUS TACHYCARDIA ARABELLA, CONSIDER BIATRIAL ABNORMALITIES RIGHT VENTRICULAR HYPERTROPHY : Confirmed by: Criss Jenkins 09-Feb-2019 14:24:19
[2019-02-09] MEDS ORDERED: CEFTRIAXONE 1 GM/D5W RTU 1 GM/50 ML RTUPB IV SCH (18:00)
== END 2019-02-09 12:25 | disposition home or self-care (01) | DRG 976 ==
LOC: ER 14:24 → EH 16:59 → 4S 20:06
PROVIDERS: ADMIT Hospitalist; ATTEND Hospitalist
DX: B20 Human immunodeficiency virus [HIV] disease (principal); J18.9 Pneumonia, unspecified organism; R91.1 Solitary pulmonary nodule; Z79.899 Other long term (current) drug therapy
CPT/HCPCS: 36415; 71046; 80048; 80053; 81001; 82803; 82962; 83605; 84484; 85025; 85610; 87040; 87086; 87804; 93005; 93010; 94762; J0456; J0696; J3490; J7030; J7060; J7120

== ENCOUNTER → 2019-04-13 | Outpatient (CLI) | payer BC ==
--- NOTE | 2019-04-13 10:50 | RADIOLOGY REPORT (SQ) ---
EXAM DESCRIPTION: CT CHEST WITHOUT COMPLETED DATE/TIME: 04/13/2019 8:03 am REASON FOR STUDY: PNEUMONIA OF LEFT LOWER LOBE DUE TO INFECTIOUS ORGANISM (J18.1) J18.1 LOBAR PNEUM ONIA, UNSPECIFIED ORGANISM COMPARISON: 06/11/2018 TECHNIQUE: CT scan performed of the chest without intravenous contrast. Images reviewed with lung, soft tissue and bone windows. Reconstructed coronal and sagittal MPR images reviewed. All images st ored on PACS. All CT scanners at this facility use dose modulation, iterative reconstruction, and/or weight based d osing when appropriate to reduce radiation dose to as low as reasonably achievable (ALARA). [facility]: Dose Right [facility]: CareDose [facility]: Dose Right [facility]: Teradose 4D [facility]: Smart Bizanga RADIATION DOSE: CT Rad equipment meets quality standard of care and radiation dose reduction techniq ues were employed. CTDIvol: 6.3 mGy. DLP: 256 mGy-cm. mGy. LIMITATIONS: No technical limitations. FINDINGS: LUNGS AND PLEURA: Subsegmental wedged shaped consolidation in the left upper lobe. Reticu lonodular pattern in the left lower lobe. No consolidation in the right lung. HILAR AND MEDIASTINAL STRUCTURES: No identified masses or abnormal nodes. No obvious aneurysm. HEART AND VASCULAR STRUCTURES: No aneurysm. No pericardial effusion. UPPER ABDOMEN: Limited exam. 3.5 cm lesion in the liver measuring 41 HU. THYROID AND OTHER SOFT TISSUES: No masses. No adenopathy. BONES: No significant finding. HARDWARE: None in the chest. OTHER: No other significant findings. IMPRESSION: 1. Abnormalities in the left lung which could be infectious, however follow-up to resolution is recom mended to exclude underlying nodules. 2. Liver lesion which will need dedicated imaging. Recommend initial evaluation with ultrasound. TECHNICAL DOCUMENTATION: JOB ID: [id number] Quality ID # [id number]: Final reports with documentation of one or more dose reduction techniques (e.g., Au tomated exposure control, adjustment of the mA and/or kV according to patient size, use of iterative reconstruction technique) 2010 [employer] [place]- All Rights Reserved Reading location - IP/workstation name: [email or web address]
== END ==
LOC: RAD 07:35
PROVIDERS: ATTEND Internal Medicine Infectious Disease
DX: J18.1 Lobar pneumonia, unspecified organism (principal)
CPT/HCPCS: 71250

== ENCOUNTER → 2019-05-03 | Outpatient (CLI) | payer BC ==
--- NOTE | 2019-05-03 15:11 | RADIOLOGY REPORT (SQ) ---
EXAM DESCRIPTION: MRI ABDOMEN COMBO COMPLETED DATE/TIME: 05/03/2019 2:14 pm REASON FOR STUDY: K76.9 LIVER DISEASE, UNSPECIFIED K76.9 LIVER DISEASE, UNSPECIFIED COMPARISON: Non contrasted CT chest 04/13/2019 CT angio chest 10/24/2018 TECHNIQUE: Multiplanar multisequence imaging performed without and with contrast including sagittal, axial and coronal T2, axial T1, axial gradient fat sat T1, axial, sagittal and coronal fat sat T1 po st contrast. CONTRAST TYPE AND DOSE: 20 mL Dotarem. RENAL FUNCTION: Not indicated. ACR Type II contrast agent associated with few, if any, unconfounded cases of NSF LIMITATIONS: Motion artifact FINDINGS: LIVER: Normal size. No dilated ducts. CBD normal. Benign-appearing hemangioma left lobe liver 3.8 x 3.2 cm in size best shown on axial T2 image 10. This has classic contrast-enhancement on T1 weighted images, and is high signal on T2. A second, smaller hemangioma is present in the manual qa tester ior right lobe liver, 12 mm in diameter on axial image 10. SPLEEN: Normal size. No focal lesions. PANCREAS: No masses. No adjacent inflammation or peripancreatic fluid collections. Pancreatic duct no t dilated. GALLBLADDER: No masses. No stones. No gallbladder wall thickening or pericholecystic fluid. ADRENAL GLANDS: No significant masses or asymmetry. RIGHT KIDNEY AND URETER: No masses. No hydronephrosis. LEFT KIDNEY AND URETER: No masses. No hydronephrosis. AORTA AND VESSELS: No aneurysm. No dissection. Renal arteries, SMA, celiac without stenosis. RETROPERITONEUM: No retroperitoneal adenopathy, hemorrhage or masses. BOWEL: Not well seen. ABDOMINAL WALL AND PERITONEUM: No hernias. No free fluid. BONES: No acute or significant findings. OTHER: No other significant finding. IMPRESSION: Benign hemangiomas in the liver TECHNICAL DOCUMENTATION: JOB ID: [id number] [employer]- All Rights Reserved Reading location - IP/workstation name: [email or web address]
== END ==
LOC: RAD 13:30
PROVIDERS: ATTEND Internal Medicine Infectious Disease
DX: D18.03 Hemangioma of intra-abdominal structures (principal); K76.9 Liver disease, unspecified
CPT/HCPCS: 74183; A9576

== ENCOUNTER → 2019-06-12 | Outpatient (CLI) | payer BC ==
--- NOTE | 2019-06-12 16:44 | RADIOLOGY REPORT (SQ) ---
EXAM DESCRIPTION: CHEST PA/LATERAL COMPLETED DATE/TIME: 06/12/2019 4:26 pm REASON FOR STUDY: OTH SYMPTOMS AND SIGNS INVOLVING THE CIRC AND RESP SYSTEMS COMPARISON: 02/08/2019 EXAM PARAMETERS: NUMBER OF VIEWS: two views TECHNIQUE: Digital Frontal and Lateral radiographic views of the chest acquired. RADIATION DOSE: NA LIMITATIONS: none FINDINGS: LUNGS AND PLEURA: Since the previous examination, interval improvement in the appearance of the chest with almost complete interval resolution of the left basilar airspace disease. The left suprahilar focal area of nodular consolidation has also decreased with mild persistent changes noted . No pneumothorax or pleural effusion. MEDIASTINUM AND HILAR STRUCTURES: No masses or contour abnormalities. HEART AND VASCULAR STRUCTURES: Heart normal size. No evidence for failure. BONES: No acute findings. HARDWARE: None in the chest. OTHER: No other significant finding. IMPRESSION: 1. Interval improvement in the appearance of the chest since the prior study dated 2018. Mild persistent nodular consolidation in the left suprahilar region. A follow-up CT chest exa mination without IV contrast is suggested. TECHNICAL DOCUMENTATION: JOB ID: [id number] [employer]- All Rights Reserved Reading location - IP/workstation name: [email or web address]
[2019-06-12 17:00] LABS: ABSOLUTE EOSINOPHILS # (AUTO) 0.3 10^3/uL (0.0-0.6); ABSOLUTE LYMPHOCYTES (AUTO) 2.5 10^3/uL (0.5-4.7); ABSOLUTE MONOCYTES (AUTO) 0.4 10^3/uL (0.1-1.4); ABSOLUTE NEUT (AUTO) 1.6 10^3/uL (1.7-8.2); BASOPHILS % (AUTO) 0.9 % (0-2); EOSINOPHILS % (AUTO) 5.6 % (0-6); HEMATOCRIT 41.5 % (37.9-51.0); HEMOGLOBIN 14.2 g/dL (13.5-17.0); LYMPHOCYTES % (AUTO) 52.4 % (13-45); MEAN CORPUSCULAR HEMOGLOBIN 29.7 pg (27.0-33.4); MEAN CORPUSCULAR HGB CONC 34.2 g/dL (32.0-36.0); MEAN CORPUSCULAR VOLUME 87 fl (80-97); MONOCYTES % (AUTO) 7.8 % (3-13); PLATELET COUNT 315 10^3/uL (150-450); RED BLOOD COUNT 4.78 10^6/uL (4.35-5.55); SEGMENTED NEUTROPHILS % (AUTO) 33.3 % (42-78); TOTAL CELLS COUNTED % (AUTO) 100 %; WHITE BLOOD COUNT 4.8 10^3/uL (4.0-10.5)
[2019-06-12 17:08] LABS: INTERNATIONAL RATION (INR) 1.04; PROTHROMBIN TIME 13.6 SEC (11.4-15.4)
[2019-06-12 17:09] LABS: PARTIAL THROMBOPLASTIN TIME 35.9 SEC (23.5-35.8)
== END ==
LOC: OD 16:05
PROVIDERS: ATTEND Internal Medicine Pulmonary Disease
DX: R93.89 Abnormal findings on diagnostic imaging of other specified body structures (principal); R09.89 Other specified symptoms and signs involving the circulatory and respiratory systems
CPT/HCPCS: 36415; 71046; 85025; 85610; 85730